=== PATIENT | male | born 1980 | race African-American/Black ===

== ENCOUNTER 2017-11-03 12:55 | Outpatient (CLI) | payer OTHER | END 2017-11-03 12:56 | disposition home or self-care (01) | LOC: DTY/OP 12:55 | PROVIDERS: ATTEND Surgery | DX: E66.01 Morbid (severe) obesity due to excess calories (principal); I10 Essential (primary) hypertension; G47.30 Sleep apnea, unspecified | CPT/HCPCS: 97802 ==

== ENCOUNTER 2018-01-29 08:33 | Outpatient (CLI) | payer BC ==
--- NOTE | 2018-01-29 13:25 | RAD ---
UPPER GI: History: Obesity. Hiatal hernia. Abdomen pain. FINDINGS: Single column contrast evaluation shows minimal sliding hiatal hernia. Small to moderate amount of ga stroesophageal reflux. Tertiary contractions of the esophagus are apparent. Stomach and duodenum are unremarkable. IMPRESSION: 1. Very small sliding hiatal hernia. 2. Gastroesophageal reflux with tertiary contractions. POS: [facility]
== END 2018-01-29 08:34 | disposition home or self-care (01) ==
LOC: RAD 08:33
PROVIDERS: ATTEND Surgery
DX: K44.9 Diaphragmatic hernia without obstruction or gangrene (principal); K21.9 Gastro-esophageal reflux disease without esophagitis
CPT/HCPCS: 74247

== ENCOUNTER 2018-02-09 10:21 | Outpatient (CLI) | payer BC ==
--- NOTE | 2018-02-09 12:20 | RAD ---
LUMBAR SPINE FOUR VIEWS: HISTORY: Back pain. TECHNIQUE: AP, lateral, and flexion/extension views of the lumbar spine obtained. FINDINGS: Four views of the lumbar spine demonstrate five [id number]-bhyclmh lumbar vertebrae. Disk space is well maintained. No evidence of fractures or bony lesions seen. No evidence of anterolisthesis or retro listhesis is seen. IMPRESSION: Normal four views lumbar spine. POS: [facility]
== END 2018-02-09 10:22 | disposition home or self-care (01) ==
LOC: SCSRAD 10:21
PROVIDERS: ATTEND Family Medicine
DX: M54.5 Low back pain (principal)
CPT/HCPCS: 36415; 72120; 80053; 80061; 82306; 84550; 85025

== ENCOUNTER 2018-03-16 09:15 | Outpatient (CLI) | payer BC ==
[2018-03-16 10:25] LABS: #Eosinphils 0.1 thou/uL (0.0-0.7); #Lymphocytes 1.8 thou/uL (1.20-3.40); #Monocytes 0.4 thou/uL (0.11-0.59); #Neutrophils 2.3 thou/uL (1.40-6.50); %Basophils 0.6 % (0.0-1.0); %Lymphocytes 38.4 % (21.0-51.0); %Monocytes 8.6 % (0.0-10.0); %Neutrophils 50.4 % (42.0-75.0); Hemoglobin 14.2 g/dL (14.0-18.0); Mean Corpuscular HGB CONC 33.5 g/dL (32.0-36.0); Mean Corpuscular Volume 86.6 fL (78.0-98.0); Mean Platelet Volume 10.6 fL (7.4-10.4); Platelet Count 179 thou/uL (130-400); RBC Distribution Width 12.8 % (11.5-14.5); Red Blood Cell (RBC) Count 4.91 mill/uL (4.70-6.10); White Blood Cell (WBC) Count 4.6 thou/uL (4.8-10.8)
[2018-03-16 10:33] LABS: Hemoglobin A1c 5.9 % (4.0-6.0)
[2018-03-16 10:51] LABS: ALT (SGPT) 128 U/L (8-55); AST (SGOT) 66 U/L (5-34); Albumin 4.9 g/dL (3.5-5.0); Alkaline Phosphatase 90 U/L (40-150); Anion Gap 17 mmol/L (10-20); BUN (Urea Nitrogen) 27 mg/dL (8.9-20.6); Bilirubin, Direct 0.3 mg/dL (0.1-0.3); Bilirubin, Total 0.7 mg/dL (0.2-1.2); Calc. Creatinine Clearance 0 mL/min (70-130); Calcium 10.4 mg/dL (7.8-10.44); Carbon Dioxide 20 mmol/L (22-29); Chloride 104 mmol/L (98-107); Estimated GFR-MDRD 82; Globulin 3.5 g/dL (2.4-3.5); Glucose 112 mg/dL (70-105); Potassium 4.6 mmol/L (3.5-5.1); Protein, Total 8.4 g/dL (6.0-8.3); Sodium 136 mmol/L (136-145)
--- NOTE | 2018-03-16 12:19 | RAD ---
TWO VIEWS CHEST: DATE: 03/16/2018. PROVIDED CLINICAL HISTORY: Preop. FINDINGS: Cardiac and mediastinal silhouette is within normal limits. Lungs appear clear. No pleural fluid or pneumothorax apparent. IMPRESSION: No evidence for an acute cardiopulmonary process. POS: [facility]
--- NOTE | 2018-03-16 12:36 | EKG ---
Test Reason : Blood Pressure : / mmHG Vent. Rate : 080 BPM Atrial Rate : 080 BPM P-R Int : 174 ms QRS Dur : 096 ms QT Int : 386 ms P-R-T Axes : 034 048 013 degrees QTc Int : 445 ms Normal sinus rhythm Cannot rule out Anterior infarct , age undetermined (Doubtful)/poor R wave progression. Abnormal ECG No previous ECGs available Confirmed by HALLIE BERGERON ([id number]) on 03/16/2018 12:35:49 PM Referred By: ANA Confirmed By:HALLIE BERGERON
== END 2018-03-16 09:16 | disposition home or self-care (01) ==
LOC: LABBT 09:15
PROVIDERS: ATTEND Surgery
DX: Z01.818 Encounter for other preprocedural examination (principal); E66.01 Morbid (severe) obesity due to excess calories
CPT/HCPCS: 71046; 80053; 80076; 83036; 85025; 93005; 93010

== ENCOUNTER 2018-03-21 09:56 | Day surgery (SDC) | payer BC ==
[2018-03-21] MEDS ORDERED: CEFAZOLIN 2 GM/50 ML BAG ONE (10:57)
[2018-03-21] MEDS ORDERED: Heparin 5,000 UNITS/ML VIAL ONE (10:57)
[2018-03-21] MEDS ORDERED: Bupivacaine 0.25% HCL 30 ML VIAL ONE (11:43)
[2018-03-21] MEDS ORDERED: Bupivacaine/Epinephrine 0.25% 30 ML VIAL ONE ×2 (11:44→11:45)
[2018-03-21] MEDS ORDERED: Fentanyl 100 MCG/2 ML VIAL ONE ×4 (12:13→15:53)
[2018-03-21] MEDS ORDERED: Midazolam HCl 2 mg/2 ml Vial ONE (12:13)
[2018-03-21] MEDS ORDERED: Promethazine HCl 25 MG/ML VIAL IM PRN ×3 (14:55→15:36)
[2018-03-21] MEDS ORDERED: Meperidine HCl/PF 25 MG/ML VIAL SLOW IVP PRN (14:55)
[2018-03-21] MEDS ORDERED: HYDROmorphone 2 MG/ML VIAL SLOW IVP PRN (14:55)
[2018-03-21] MEDS ORDERED: Promethazine HCl 25 MG/ML VIAL SLOW IVP PRN (14:55)
[2018-03-21] MEDS ORDERED: Ondansetron PF 4 MG/2 ML Vial ONE ×2 (15:11→15:18)
[2018-03-21] MEDS ORDERED: diphenhydrAMINE 50 MG/ML VIAL IVP PRN ×2 (15:16→15:36)
[2018-03-21] MEDS ORDERED: fentaNYL Citrate/PF 2,000 MCG in Sodium Chloride 0.9% 60 ML IV PRN (15:16)
[2018-03-21] MEDS ORDERED: Zolpidem Tartrate 5 MG TAB PO PRN (15:16)
[2018-03-21] MEDS ORDERED: diphenhydrAMINE 50 MG/ML VIAL IM PRN (15:16)
[2018-03-21] MEDS ORDERED: Ondansetron PF 4 MG/2 ML Vial IVP PRN ×2 (15:16→15:36)
[2018-03-21] MEDS ORDERED: diphenhydrAMINE 25 MG CAP PO PRN (15:16)
[2018-03-21] MEDS ORDERED: Naloxone HCl 0.4 mg/ml Vial IV PRN (15:16)
[2018-03-21] MEDS ORDERED: Communication Order-Pharmacy FS SCH (15:30)
[2018-03-21] MEDS ORDERED: Hydrocodone-Acetamin 15 ML UDCUP PO PRN (15:36)
[2018-03-21] MEDS ORDERED: Dextrose 50% Abboject 50 ML SYRINGE SLOW IVP PRN (15:36)
[2018-03-21] MEDS ORDERED: Dextrose 5% in Water 1,000 ML IV PRN (15:36)
[2018-03-21] MEDS ORDERED: hydrALAZINE 20 MG/ML VIAL SLOW IVP PRN (15:36)
[2018-03-21] MEDS ORDERED: HYDROmorphone 2 MG/ML VIAL ONE (16:04)
[2018-03-21] MEDS ORDERED: D5 1/2 NS w/20 mEq KCL 1,000 ML ONE (16:07)
[2018-03-21 17:34] VITALS: BMI 51.0
[2018-03-21] MEDS: D5 1/2 NS w/20 mEq KCL 1,000 ML IV SCH (17:45)
[2018-03-21] MEDS ORDERED: PROPOFOL 200 MG/20 ML VIAL ONE (18:24)
[2018-03-21] MEDS ORDERED: Glycopyrrolate 0.2 MG/ML 5 ML SYRINGE ONE (18:24)
[2018-03-21] MEDS ORDERED: Succinylcholine Chloride 20 MG/ML 10 ml SYRINGE FS ONE (18:24)
[2018-03-21] MEDS ORDERED: Lidocaine 1% PF 5 ML VIAL ONE (18:24)
[2018-03-21] MEDS ORDERED: ePHEDrine/0.9% NaCl/PF SYRINGE 50 mg/10 ml ONE (18:24)
[2018-03-21] MEDS: Enoxaparin Sodium 40 MG/0.4 ML SYRINGE SC SCH (19:48)
[2018-03-21] MEDS: Acetaminophen 1,000 MG in Premix Bag 1 BAG IVPB SCH (19:48)
[2018-03-22] MEDS: Acetaminophen 1,000 MG in Premix Bag 1 BAG IVPB SCH ×2 (02:41→08:39)
[2018-03-22] MEDS: D5 1/2 NS w/20 mEq KCL 1,000 ML IV SCH ×2 (02:42→08:38)
[2018-03-22 07:07] LABS: #Lymphocytes 1.3 thou/uL (1.20-3.40); #Monocytes 0.6 thou/uL (0.11-0.59); #Neutrophils 3.3 thou/uL (1.40-6.50); %Basophils 0.4 % (0.0-1.0); %Eosinophils 0.4 % (0.0-10.0); %Lymphocytes 25.5 % (21.0-51.0); %Monocytes 11.1 % (0.0-10.0); %Neutrophils 62.6 % (42.0-75.0); Hemoglobin 12.3 g/dL (14.0-18.0); Mean Corpuscular HGB CONC 33.3 g/dL (32.0-36.0); Mean Corpuscular Volume 87.1 fL (78.0-98.0); Mean Platelet Volume 10.3 fL (7.4-10.4); Platelet Count 184 thou/uL (130-400); RBC Distribution Width 12.6 % (11.5-14.5); Red Blood Cell (RBC) Count 4.26 mill/uL (4.70-6.10); White Blood Cell (WBC) Count 5.3 thou/uL (4.8-10.8)
[2018-03-22 07:12] LABS: Anion Gap 11 mmol/L (10-20); BUN (Urea Nitrogen) 13 mg/dL (8.9-20.6); Calc. Creatinine Clearance 258 mL/min (70-130); Calcium 8.9 mg/dL (7.8-10.44); Carbon Dioxide 25 mmol/L (22-29); Chloride 104 mmol/L (98-107); Estimated GFR-MDRD Greater than 90; Glucose 120 mg/dL (70-105); Potassium 4.1 mmol/L (3.5-5.1); Sodium 136 mmol/L (136-145)
[2018-03-22] MEDS: Pantoprazole 40 MG VIAL IVP SCH (08:39)
[2018-03-22] MEDS ORDERED: Fentanyl 100 MCG/2 ML VIAL SLOW IVP PRN (09:23)
--- NOTE | 2018-03-22 09:46 | PRG ---
DATE OF SERVICE: 03/22/2018 SUBJECTIVE: Postop day 1 gastric bypass. Mr. Wright denies nausea. He has been out of bed once just in the room, not complaining of dizziness, nausea, or vomiting. No acid reflux symptoms. He has not been able to void. He has already been in and out catheterization once. He is due to void now and has 650 mL in his bladder. OBJECTIVE: He is afebrile. Vital signs are stable. His abdomen wounds are healing well. LABORATORY DATA: White count is 5, hemoglobin 12, platelet count is 184. Creatinine is 1.07. ASSESSMENT: Postop day #1 gastric bypass. PLAN: Needs to be more active. We will get him up, see if that helps with his ability to void. Otherwise, in and out cath again. Hep-Lock IV. Discontinue COMPRESSED GAS TESTER. Home later today if able to void and tolerating liquids. Job ID: [id number]
[2018-03-22] MEDS: Hydrocodone-Acetamin 15 ML UDCUP PO PRN ×3 (11:04→19:37)
[2018-03-22] MEDS ORDERED: Acetaminophen 1,000 MG in Premix Bag 1 BAG IVPB SCH (15:00)
[2018-03-22] MEDS: Enoxaparin Sodium 40 MG/0.4 ML SYRINGE SC SCH (19:37)
[2018-03-23] MEDS: Hydrocodone-Acetamin 15 ML UDCUP PO PRN ×3 (02:00→10:46)
--- NOTE | 2018-03-23 10:17 | DIS ---
DATE OF ADMISSION: 03/21/2018 DATE OF DISCHARGE: 03/23/2018 ADMISSION DIAGNOSIS: Morbid obesity. DISCHARGE DIAGNOSIS: Morbid obesity. PROCEDURE: Laparoscopic Jem-en-Y gastric bypass by Dr. Dai without complication. CONDITION ON DISCHARGE: Improved. STAFF: Dr. Dai. HOSPITAL COURSE: On postop day 1, the patient had some pain in this left most lateral incision. He had mild nausea with the liquids. He had some urinary retention that resolved after having to have in and out catheterization one time overnight. On postop day 2, the patient is doing better with less nausea, tolerating more liquids. He is to be discharged to home. Prescriptions for Lortab, elixir, Zofran, pantoprazole were already sent to his pharmacy. He will follow up with my office in 2 weeks. Job ID: [id number]
[2018-03-23] MEDS: Pantoprazole 40 MG VIAL IVP SCH (10:47)
[2018-03-23 11:32] VITALS: BP 141/77; TEMP 98.5
--- NOTE | 2018-03-23 12:51 | OP ---
DATE OF PROCEDURE: 03/21/2018 PREOPERATIVE DIAGNOSES: 1. Super morbid obesity with a body mass index of 53. 2. Hypertension. 3. gastroesophageal reflux disease. 4. Obstructive sleep apnea. POSTOPERATIVE DIAGNOSES: 1. Super morbid obesity with a body mass index of 53. 2. Hypertension. 3. gastroesophageal reflux disease. 4. Obstructive sleep apnea. PROCEDURES: Laparoscopic Jem-en-Y gastric bypass. ANESTHESIA: General. ESTIMATED BLOOD LOSS: 50 mL. COMPLICATIONS: None. FINDINGS: Normal postoperative EGD. TECHNIQUE: The patient was taken to the operating room and laid supine on the operating room table. After general anesthetic was obtained, the arms and legs were double strapped to bariatric table. The abdomen was shaved, prepped, and draped in a sterile fashion. Left subcostal 5-mm Optiview trocar was placed in usual fashion without injury and high-flow pneumoperitoneum was obtained. Left and right abdominal 12-mm ports were placed as well as a right subcostal 12-mm port. The left subcostal port was switched out to a 12 port. The patient was placed in a reverse Trendelenburg position. A 5-mm incision made at the xiphoid and the Lory was used to raise the liver off the GE junction. The greater omentum was split to the level of the mid transverse colon. Just below this, the mesentery for the colon was lifted up, exposing the ligament of Treitz. A distance of 25 cm was marched distally and a laparoscopic stapler was fired across the small intestine. The mesentery was split slightly using a LigaSure here and then a blue limb was formed distally by using LigaSure right on the mesenteric surface of the bowel for approximately 6 cm. From this location, a distance of 130 cm was marched distally and this will be the location of the jejunojejunostomy. Enterotomy was made on the antimesenteric surface of the jejunum as well as on the antimesenteric surface of the previously stapled segment going up to the ligament of Treitz above. A lcpb-du-hhow anastomosis was performed using laparoscopic 60 stapler. The common enterotomy was closed using a transverse fire of the 60 stapler. The mesenteric defect was closed using an interrupted Vicryl suture. The blue limb, which was the Jem limb, was able to brought up through the omental split on top of the stomach under no tension. Next, the angle of His was bluntly dissected and the fundus was bluntly dissected off the left jude. A small window was made on the lesser curve of the stomach just below the GE junction into the lesser sac. At this location, a laparoscopic stapler was fired transversely across the lesser curve of the stomach. A gastrotomy was made on the distal stomach and the anvil for the 25 EEA was brought in through the left subcostal incision, it has a string tied to the sharp pin. This was passed into the gastrotomy and the sharp pin and string was brought out just above the above-mentioned staple line. This will be the location of the gastrojejunostomy. The gastrotomy was then closed using 2 fires of the laparoscopic stapling device. The stomach pouch was formed by firing above anvil angling up toward the angle of His. The stomach was confirmed to be completely at this level. The sharp pin was taken off the anvil above. The Jem limb was brought up in its proper orientation. Enterotomy was made on the end of the Ejm limb. The base for the 25 stapler was brought into left subcostal incision, passed into this intestine and its sharp pin was brought on the antimesenteric surface of the intestine slightly distal. This sharp pin was connected to the anvil from above and a gastrojejunostomy was performed by firing the stapler. The extra blue lymph and into the Jem limb was stapled off at the level of gastrojejunostomy using a reloaded laparoscopic stapler. This anastomosis was oversewn using Vicryl suture. There was no bleeding. There was no injury to any intraabdominal structures. EGD scope was passed into the esophagus, into the stomach pouch, and then into the jejunum without any difficulty. There was no air leakage or bleeding to the staple line. All port sites were infiltrated using local anesthetic. The left subcostal incision was closed using GraNee needle and 0 Vicryl tie. The Lory retractor was removed under direct visualization without bleeding. All ports were removed and pneumoperitoneum was let down. All incisions were irrigated and closed using 4-0 Monocryl and Dermabond. The patient was sent to Recovery in stable condition. All instrument counts, needle counts, and lap counts were correct. Job ID: [id number]
== END 2018-03-23 14:30 | disposition home or self-care (01) ==
LOC: SDC 09:56 → UNDOADMIN 17:35 → SURG A 17:35 → SURG B 03-22 10:44 → SURG A 03-22 10:50 → SDC 03-23 14:30
PROVIDERS: ATTEND Surgery
PROC: 0D164ZA Bypass Stomach to Jejunum, Percutaneous Endoscopic Approach (ICD-10-PCS; principal; 2018-03-21)
DX: E66.01 Morbid (severe) obesity due to excess calories (principal); Z68.43 Body mass index [BMI] 50.0-59.9, adult; K21.9 Gastro-esophageal reflux disease without esophagitis; Z79.899 Other long term (current) drug therapy
CPT/HCPCS: 36415; 80048; 85025; C9113; J0131; J0360; J1170; J1644; J1650; J2001; J2250; J2405; J2704; J3010; J7050; S0020

== ENCOUNTER 2018-03-30 04:12 | Emergency (ER) | payer BC ==
--- NOTE | 2018-03-30 07:55 | ULT ---
PRELIMINARY REPORT/[facility]/EMERGENTY AFTER-HOURS PROCEDURE US Left Duplex Lower Extremity Veins, Limited EXAM DATE/TIME: 03/30/2018 4:38 AM CLINICAL HISTORY: 37 years old, male; Pain; Leg, upper; Left; Patient HX: Lle pain in mid thigh. ; Additional info: Gas tric bypass surgery 03/21/18 TECHNIQUE: Real-time Duplex ultrasound of the Left Lower Extremity with 2-D wood scale, color Doppler flow and s pectral waveform analysis. Limited exam focused on the left lower extremity veins. COMPARISON: No relevant prior studies available. FINDINGS: Left deep veins: Unremarkable. The common femoral, femoral and popliteal veins are patent without thr ombus. Normal compressibility, augmentation response and Doppler waveforms. Left superficial veins: Unremarkable. Saphenofemoral junction is patent without thrombus. Soft tissues: Unremarkable. IMPRESSION: No acute findings. No evidence of deep vein thrombosis in the left lower extremity. Thank you for allowing us to participate in the care of your patient. Dictated and Authenticated by: Maxwell Ayala MD 03/30/2018 5:41 AM Central Time ([place] & [place]) FINAL REPORT LEFT LOWER EXTREMITY VENOUS DOPPLER: Date: 03/30/18 HISTORY: Left lower extremity edema. COMPARISON: None. TECHNIQUE: Real-time Wood scale with color Doppler and spectral analysis of the left lower extremity venous syst em was performed. The common femoral, femoral, proximal portion of greater saphenous and deep femoral veins, as well as popliteal and posterior tibial veins were interrogated. FINDINGS/IMPRESSION: Normal flow, augmentation, and compression. No deep venous thrombosis. Findings and impression are concordant with the preliminary report by [facility]. POS: [facility]
== END 2018-03-30 05:07 | disposition home or self-care (01) ==
LOC: ERS 04:12
DX: G89.18 Other acute postprocedural pain (principal); M79.652 Pain in left thigh; I10 Essential (primary) hypertension; M10.9 Gout, unspecified; F41.9 Anxiety disorder, unspecified; Z79.899 Other long term (current) drug therapy

== ENCOUNTER 2018-04-23 14:43 | Day surgery (SDC) | payer BC ==
[2018-04-23] MEDS ORDERED: Thiamine HCl 200 MG/2 ML VIAL ONE (15:21)
[2018-04-23] MEDS ORDERED: Ondansetron PF 4 MG/2 ML Vial ONE (15:21)
== END 2018-04-23 16:50 | disposition home or self-care (01) ==
LOC: SCSER/OP 14:43 → SCSER 14:43 → EDSTATUS 15:32 → SCSER/OP 16:50
PROVIDERS: ATTEND Surgery
DX: E86.0 Dehydration (principal); Z98.84 Bariatric surgery status; Z79.891 Long term (current) use of opiate analgesic; Z79.899 Other long term (current) drug therapy
CPT/HCPCS: J2405; J3411

== ENCOUNTER → 2018-04-24 | Day surgery (SDC) | payer BC ==
[~2018-04-24] MED LIST: Ondansetron PF 4 MG/2 ML Vial ONE; Pantoprazole 40 MG VIAL ONE
[2018-04-24 22:48] LABS: Hemoglobin 13.1 g/dL (14.0-18.0); Mean Corpuscular HGB CONC 32.1 g/dL (32.0-36.0); Mean Corpuscular Hemoglobin 27.5 pg (27.0-31.0); Mean Corpuscular Volume 85.5 fL (78.0-98.0); Mean Platelet Volume 10.6 fL (7.4-10.4); Platelet Count 205 thou/uL (130-400); RBC Distribution Width 13.4 % (11.5-14.5); Red Blood Cell (RBC) Count 4.77 mill/uL (4.70-6.10); White Blood Cell (WBC) Count 7.4 thou/uL (4.8-10.8)
[2018-04-24 22:50] LABS: Band 1 % (5-11); Eosinophils 2 % (0-10); Lymphocytes 32 % (21-51); Monocytes 7 % (0-10); Neutrophil 57 % (42-75)
[2018-04-24 22:52] LABS: MDiff Complete? YES
[2018-04-24 23:00] LABS: ALT (SGPT) 88 U/L (8-55); AST (SGOT) 73 U/L (5-34); Albumin 4.2 g/dL (3.5-5.0); Alkaline Phosphatase 103 U/L (40-150); Anion Gap 17 mmol/L (10-20); BUN (Urea Nitrogen) 8 mg/dL (8.9-20.6); Bilirubin, Total 0.7 mg/dL (0.2-1.2); Calc. Creatinine Clearance 0 mL/min (70-130); Calcium 9.4 mg/dL (7.8-10.44); Carbon Dioxide 21 mmol/L (22-29); Chloride 107 mmol/L (98-107); Estimated GFR-MDRD Greater than 90; Globulin 3.9 g/dL (2.4-3.5); Glucose 82 mg/dL (70-105); Potassium 5.1 mmol/L (3.5-5.1); Protein, Total 8.1 g/dL (6.0-8.3); Sodium 140 mmol/L (136-145)
[2018-04-25 01:09] LABS: Bilirubin Negative (Negative); Blood, Urine Negative (Negative); Clarity Clear (Clear); Glucose, Urine (Dipstick) Negative (Negative); Leukocyte Negative (Negative); Nitrite Negative (Negative); Protein, Urine (Dipstick) Negative (Neg-Trace); Urobilinogen 0.2 mg/dL (0.2-1.0)
== END ==
LOC: SCSER/OP 17:46
PROVIDERS: ATTEND Family Medicine
DX: Z29.8 Encounter for other specified prophylactic measures (principal)
CPT/HCPCS: 80053; 81003; 85025; 87086; C9113; J2405

== ENCOUNTER 2018-04-25 14:22 | Observation (INO) | payer BC ==
[~2018-04-25 14:22] MED LIST changes: +ISOVUE-370 76%-LOCM 1 ML ONE; +Iopamidol 370 76% 50 ML VIAL FS ONE; -Ondansetron PF 4 MG/2 ML Vial ONE; -Pantoprazole 40 MG VIAL ONE
[2018-04-25] MEDS ORDERED: Ondansetron ODT 8 MG TAB ONE (15:30)
[2018-04-25 16:20] LABS: #Basophils 0.1 thou/uL (0.0-0.2); #Eosinphils 0.1 thou/uL (0.0-0.7); #Lymphocytes 1.6 thou/uL (1.20-3.40); #Monocytes 0.3 thou/uL (0.11-0.59); #Neutrophils 3.1 thou/uL (1.40-6.50); %Basophils 1.8 % (0.0-1.0); %Eosinophils 1.6 % (0.0-10.0); %Lymphocytes 30.6 % (21.0-51.0); %Monocytes 6.2 % (0.0-10.0); %Neutrophils 59.8 % (42.0-75.0); Hemoglobin 14.7 g/dL (14.0-18.0); Mean Corpuscular HGB CONC 32.5 g/dL (32.0-36.0); Mean Corpuscular Hemoglobin 29.3 pg (27.0-31.0); Mean Corpuscular Volume 90.2 fL (78.0-98.0); Mean Platelet Volume 11.9 fL (7.4-10.4); Platelet Count 150 thou/uL (130-400); RBC Distribution Width 13.3 % (11.5-14.5); Red Blood Cell (RBC) Count 5.02 mill/uL (4.70-6.10); White Blood Cell (WBC) Count 5.1 thou/uL (4.8-10.8)
[2018-04-25 16:39] LABS: Bilirubin Negative (Negative); Blood, Urine Negative (Negative); Clarity CLEAR (Clear); Glucose, Urine (Dipstick) Negative (Negative); Leukocyte Negative (Negative); Nitrite Negative (Negative); Protein, Urine (Dipstick) Negative (Neg-Trace); Specific Gravity, Urine 1.015 (1.002-1.036)
[2018-04-25 16:45] LABS: ALT (SGPT) 86 U/L (8-55); AST (SGOT) 50 U/L (5-34); Albumin 4.5 g/dL (3.5-5.0); Alkaline Phosphatase 118 U/L (40-150); Anion Gap 18 mmol/L (10-20); BUN (Urea Nitrogen) 6 mg/dL (8.9-20.6); Bilirubin, Total 0.8 mg/dL (0.2-1.2); Calc. Creatinine Clearance 0 mL/min (70-130); Calcium 9.5 mg/dL (7.8-10.44); Carbon Dioxide 23 mmol/L (22-29); Chloride 104 mmol/L (98-107); Estimated GFR-MDRD Greater than 90; Globulin 3.5 g/dL (2.4-3.5); Glucose 81 mg/dL (70-105); Lipase 11 U/L (8-78); Potassium 3.6 mmol/L (3.5-5.1); Sodium 141 mmol/L (136-145)
[2018-04-25] MEDS ORDERED: Morphine 4 MG/ML VIAL ONE ×2 (16:45→19:03)
[2018-04-25] MEDS ORDERED: hydrALAZINE 20 MG/ML VIAL SLOW IVP PRN (18:52)
[2018-04-25] MEDS ORDERED: Promethazine HCl 25 MG/ML VIAL IM PRN (18:52)
[2018-04-25] MEDS ORDERED: Dextrose 5% in Water 1,000 ML IV PRN (18:52)
[2018-04-25] MEDS ORDERED: Dextrose 50% Abboject 50 ML SYRINGE SLOW IVP PRN (18:52)
[2018-04-25] MEDS ORDERED: Morphine 2 MG/ML SYRINGE SLOW IVP PRN (18:52)
--- NOTE | 2018-04-25 20:45 | CT ---
ABDOMEN CT WITH CONTRAST PELVIC CT WITH CONTRAST 04/25/18 HISTORY: Abdominal pain. Previous gastric bypass. Intermittent vomiting and diarrhea since Monday. COMPARISON: None. FINDINGS: ABDOMEN CT: Linear opacities in the lung bases likely represent areas of scar and atelectasis. No pericardial eff usion. The descending thoracic aorta and abdominal aorta have normal caliber. No periaortic fat stran ding. No gastrohepatic, retrocrural or periportal lymph adenopathy. Portal vein is patent. Unremarkable gallbladder. Liver, pancreas, and the adrenal glands have appropriate attenuation and enhancement. There is no me senteric mass lymphadenopathy, free air or free fluid. There are surgical changes compatible with bar iatric surgery. Small bowel loops are neither distended or nor dilated. Ileocecal junction is normal. Normal caliber appendix. Colon is decompressed. Occasional diverticulum. No definite diverticulitis. Symmetric enhancement of the kidneys. Bilaterally, no obstructive uropathy. There is a nonobstructing 1 to 2 mm calculus in the left upper pole intrarenal collecting system. There is mixed attenuation l esion in the upper pole of the right kidney, incompletely evaluated. This lesion has an attenuation c oefficient of 15 Hounsfield units and measures 2.1 cm. The possibility of a complex cyst is raised. N onemergent abdomen MRI or ultrasound can be performed for better interrogation. CT PELVIS; Unremarkable urinary bladder. No mass, lymphadenopathy, free air or free fluid. No lytic or blastic l esions in the osseous structures. IMPRESSION: 1. Findings compatible with previous bariatric surgery. 2. No evidence of bowel obstruction. Normal caliber appendix. 3. Indeterminate lesion in the upper pole of the right kidney which may represent a complex cyst . Confirmation with nonemergent abdomen MRI or ultrasound. POS: [facility]
[2018-04-25] MEDS: Enoxaparin Sodium 40 MG/0.4 ML SYRINGE SC SCH (22:03)
[2018-04-25] MEDS: D5 1/2 NS w/20 mEq KCL 1,000 ML IV SCH (22:03)
[2018-04-25] MEDS: HYDROcodone/Acetaminophen 10/325 mg Tablet PO PRN (22:16)
[2018-04-25 23:09] VITALS: BMI 47.2
[2018-04-26] MEDS: HYDROcodone/Acetaminophen 10/325 mg Tablet PO PRN ×3 (03:31→16:44)
[2018-04-26] MEDS: D5 1/2 NS w/20 mEq KCL 1,000 ML IV SCH ×3 (05:27→18:37)
[2018-04-26] MEDS: Morphine 4 MG/ML VIAL SLOW IVP PRN ×3 (06:06→18:35)
[2018-04-26] MEDS: Pantoprazole 40 MG VIAL IVP SCH (09:25)
--- NOTE | 2018-04-26 12:53 | HP ---
HISTORY OF PRESENT ILLNESS: Mr. Wright returned to the emergency room again with nausea, vomiting, and some diarrhea. This all started on Monday when he presented with nausea, vomited a few times, associated with diarrhea, has not really been able to keep much down since he has been to the emergency room few times by my instruction for IV fluids, just not better. He feels much better after being here overnight. He has been able to sip on some liquids this morning. PAST MEDICAL HISTORY: Includes gout, GERD, morbid obesity, and hypertension. PAST SURGICAL HISTORY: Jem-en-Y gastric bypass on 03/21/2018. MEDICATIONS: Taken at home; Protonix, multivitamin, metoprolol, Celexa, lisinopril, and allopurinol. ALLERGIES: NO KNOWN DRUG ALLERGIES. SOCIAL HISTORY: No smoking, alcohol, or other drugs. REVIEW OF SYSTEMS: Otherwise negative unless described above. PHYSICAL EXAMINATION: VITAL SIGNS: His blood pressure is 120/75, pulse 80, respirations 16, and he is afebrile. HEENT: Sclerae anicteric. Oropharynx is clear. NECK: No lymphadenopathy. CHEST: Clear. HEART: Regular rate and rhythm. ABDOMEN: Soft and nontender. Wound is healing well. LABORATORY DATA: White count is 5, hemoglobin 14, and platelet count is 150. Sodium 141, potassium 3.6, and creatinine 0.93. UA negative. CT scan negative. ASSESSMENT: Nausea, vomiting, and dehydration within the first month of gastric bypass. PLAN: Continue IV fluids today. Advance to full liquids. Home tomorrow, if doing well. If not, we will get Gastroenterology to see for EGD. Job ID: [id number]
[2018-04-26] MEDS: Ondansetron PF 4 MG/2 ML Vial IVP PRN (19:18)
[2018-04-26] MEDS: Enoxaparin Sodium 40 MG/0.4 ML SYRINGE SC SCH (21:05)
[2018-04-27] MEDS: D5 1/2 NS w/20 mEq KCL 1,000 ML IV SCH ×3 (03:28→18:23)
[2018-04-27] MEDS: Pantoprazole 40 MG VIAL IVP SCH (08:19)
[2018-04-27] MEDS: HYDROcodone/Acetaminophen 10/325 mg Tablet PO PRN ×3 (08:22→22:43)
--- NOTE | 2018-04-27 09:46 | PRG ---
DATE OF SERVICE: 04/27/2018 SUBJECTIVE: Mr. Wright states that he still cannot drink much liquids. He tried some pudding yesterday and it came right back up. He does overall feel better after an admission for rehydration. He is urinating regularly now. He did have a small bowel movement and has been passing some gas. OBJECTIVE: VITAL SIGNS: Blood pressure is 125/80 and pulse 66. He is afebrile. Urine output 850 for the shift. CHEST: Clear. HEART: Regular rate and rhythm. ABDOMEN: Soft, nontender, nondistended. His incisions are well healed. ASSESSMENT: 4 weeks status post gastric bypass, who is initially doing well, now having nausea and vomiting, inability to tolerate more than clear liquids. His CT scan on admission was normal. His labs were all normal except for minimal elevation of his liver tests, which was present before surgery. PLAN: We will ask Dr. Carmona to see, maybe needs an EGD to rule out an acute gastrojejunal stenosis. Job ID: [id number]
[2018-04-27] MEDS ORDERED: Promethazine HCl 25 MG/ML VIAL IM PRN (13:15)
[2018-04-27] MEDS ORDERED: Promethazine HCl 25 MG/ML VIAL SLOW IVP PRN (13:15)
[2018-04-27] MEDS ORDERED: HYDROmorphone 2 MG/ML VIAL SLOW IVP PRN (13:15)
[2018-04-27] MEDS ORDERED: Ondansetron HCl/PF 4 MG/2 ML Vial IVP PRN (13:15)
[2018-04-27] MEDS ORDERED: Meperidine HCl/PF 25 MG/ML VIAL SLOW IVP PRN (13:15)
[2018-04-27] MEDS ORDERED: Lidocaine 1% PF 5 ML VIAL ONE (13:49)
[2018-04-27] MEDS ORDERED: PROPOFOL 200 MG/20 ML VIAL ONE (13:49)
--- NOTE | 2018-04-27 15:32 | CON ---
DATE OF CONSULTATION: REASON FOR CONSULTATION: Nausea and vomiting, status post bariatric surgery. HISTORY OF PRESENT ILLNESS: Mr. Wright is a pleasant 37-year-old, who underwent a bariatric surgery on 03/21. He had a Jem-en-Y gastric bypass and repair of a hiatal hernia. He did well with clear liquids and advanced to full liquids, and then the puree foods up until about 2 weeks ago. At that time, on Monday, he developed acute nausea and vomiting, really has not able to hold anything down. Dr. Dai had him in the ER couple of times and then in Infusion Unit just for IV fluids as he thought maybe he had something viral. He denies drinking alcohol. He denies taking any NSAIDs. Denies smoking. He ultimately was admitted. He had a CAT scan of the abdomen and pelvis yesterday that showed no identifiable causes of the symptoms. No adenopathy. No free fluid. Normal small bowel. Colon was decompressed. Dr. Dai placed him on some IV fluids and asked me to see for possible endoscopy. PAST MEDICAL HISTORY: Reflux, gout, morbid obesity, and hypertension. PAST SURGICAL HISTORY: On 03/21/2018, Jem-en-Y gastric bypass, which he has done well with up until two weeks ago. MEDICATIONS: At home; 1. Protonix. 2. Multivitamin. 3. Metoprolol. 4. Celexa. 5. Lisinopril. 6. Allopurinol. PRESENT MEDICATIONS: 1. DuoNeb. 2. Dextrose 50 p.r.n. 3. Lovenox 40 subcu daily. 4. Fentanyl p.r.n. 5. Hydralazine p.r.n. 6. Hydrocodone p.r.n. 7. Demerol p.r.n. 8. Zofran p.r.n. 9. Protonix 40 mg IV daily maintenance infusion. ALLERGIES: NONE. SOCIAL HISTORY: He does not smoke, drink, or use drugs. REVIEW OF SYSTEMS: Negative for dysphagia or odynophagia. Negative for fever or chills. Negative for melena, hematochezia, or hematemesis. PHYSICAL EXAMINATION: GENERAL: The patient is resting comfortably in bed, not in distress. He is overweight still. HEENT: Oropharynx slightly dry. LUNGS: Clear. HEART: Regular rate and rhythm without rubs or murmurs. ABDOMEN: Soft and nontender. Incisions are well healed without any evidence of drainage or abnormalities. LABORATORY DATA: Labs yesterday notable for a white count of 5.1, hemoglobin 14.7, and platelet count of 150. Sodium 141, potassium 3.6, BUN and creatinine of 6 and 0.93. AST and ALT of 15 and 86. Lipase 11. Albumin and protein normal. ASSESSMENT: Nausea and vomiting for 2 weeks, history of bariatric surgery about a month ago. Differential diagnosis includes gastroparesis, post gastroenteritis, anastomotic stricture or ulcer could be a possibility as well. He does have a history of hiatal hernia repair, some type of stricture related to his previous reflux could be a concern. PLAN: Agree with IV fluids and admission. We will plan for EGD today. I have discussed the case with the patient and with Dr. Dai. Job ID: [id number]
[2018-04-27] MEDS: Morphine 4 MG/ML VIAL SLOW IVP PRN (15:33)
[2018-04-27] MEDS: Sucralfate 1 GM/10 ML UDCUP PO SCH (17:36)
--- NOTE | 2018-04-27 17:43 | OP ---
DATE OF PROCEDURE: 04/27/2018 PROCEDURE PERFORMED: Esophagogastroduodenoscopy with dilatation of gastrojejunal anastomosis. HISTORY OF PRESENT ILLNESS: 1. Nausea and vomiting for 2 weeks. 2. Bariatric surgery, Jem-en-Y gastric bypass and hernia repair four weeks ago. POSTPROCEDURE DIAGNOSES: 1. Slight erosions at the gastrojejunal anastomosis. 2. 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 3. Otherwise, normal Jem-en-Y gastric bypass appearance except for the presence of about a 4 cm hiatal hernia. RECOMMENDATIONS: 1. IV Protonix. 2. Carafate, clear liquids, antiemetics. PROCEDURE IN DETAIL: The patient was informed of the risks, benefits, and possible complications of endoscopy including perforation, reaction to medication, and aspiration, and informed consent obtained. The patient was brought to the endoscopy suite, where he was sedated in gradual fashion. Once he was comfortable, a bite block was placed into his oropharynx. The esophagus appeared normal. There was no evidence of stricture. At the lower esophagus, there was a hiatal hernia with height at about 45 cm and the proximal gastric folds at about 40 cm. There is no evidence of erosions or Douglas ulcers. Entering the stomach, retroflexed views revealed normal appearing pouch. The scope could not be advanced through the gastrojejunal anastomosis however, due to tightness, this area was dilated with a 12 mm balloon and then with a 15 mm balloon. Second-look showed good effect. There was no evidence of perforation in the course of the anastomosis over some erosions and ulceration. There was no evidence of overt surgical clips or sutures visible, and there are no signs of perforation. The scope was advanced through the jejunal limb down as far as we could. The anastomosis of Jem limb was not identified. This area appeared normal. The scope was removed. The patient tolerated the procedure well. There were no complications. These findings were discussed the patient and Dr. Dai. Job ID: [id number]
[2018-04-27] MEDS: Ondansetron PF 4 MG/2 ML Vial IVP PRN (19:52)
[2018-04-27] MEDS: Enoxaparin Sodium 40 MG/0.4 ML SYRINGE SC SCH (20:34)
[2018-04-28] MEDS: Sucralfate 1 GM/10 ML UDCUP PO SCH ×4 (00:15→17:47)
[2018-04-28] MEDS: HYDROcodone/Acetaminophen 10/325 mg Tablet PO PRN ×4 (04:59→21:16)
[2018-04-28] MEDS: D5 1/2 NS w/20 mEq KCL 1,000 ML IV SCH ×4 (05:01→21:15)
[2018-04-28 07:39] LABS: Anion Gap 10 mmol/L (10-20); BUN (Urea Nitrogen) Less than 4 mg/dL (8.9-20.6); Calc. Creatinine Clearance 302 mL/min (70-130); Carbon Dioxide 27 mmol/L (22-29); Chloride 104 mmol/L (98-107); Estimated GFR-MDRD Greater than 90; Glucose 105 mg/dL (70-105); Magnesium 1.7 mg/dL (1.6-2.6); Phosphorus 3.2 mg/dL (2.3-4.7); Potassium 3.6 mmol/L (3.5-5.1); Sodium 137 mmol/L (136-145)
[2018-04-28] MEDS: Pantoprazole 40 MG VIAL IVP SCH (09:04)
[2018-04-28] MEDS: Ondansetron PF 4 MG/2 ML Vial IVP PRN (12:38)
[2018-04-28] MEDS: Enoxaparin Sodium 40 MG/0.4 ML SYRINGE SC SCH (21:12)
[2018-04-29] MEDS: Sucralfate 1 GM/10 ML UDCUP PO SCH ×2 (04:38→05:39)
[2018-04-29] MEDS: HYDROcodone/Acetaminophen 10/325 mg Tablet PO PRN ×2 (04:39→11:10)
[2018-04-29] MEDS: Pantoprazole 40 MG VIAL IVP SCH (10:14)
[2018-04-29 11:52] VITALS: BP 125/84; TEMP 98
--- NOTE | 2018-04-29 18:04 | PRG ---
DATE OF SERVICE: 04/29/2018 SUBJECTIVE: Mr. Wright states he ate better. Yesterday, he was able to hold on liquids. He is looking forward to going home today. OBJECTIVE: VITAL SIGNS: Temperature is 98, pulse 50 to 47, and blood pressure is 125/84. GENERAL: The patient is resting, sleeping in bed. ABDOMEN: Nontender when we rolled him over. LABORATORY DATA: None today. ASSESSMENT: Anastomotic stricture, gastrojejunal area, not able to pass the scope. This was dilated to 15 mm. Small ulcerations noted in this area. The distal anastomosis appeared normal. PLAN: He is to be going home today. I have recommend he continue his multivitamins. We will also place him on Carafate to take for the couple of weeks and a PPI. He has been instructed to drink fluids slowly. He is down to full liquid diet with his vitamins. He is to follow up with Dr. Dai in the office in a week or so. He may need to be re-dilated in the future. Reminded him not to use NSAIDs, drink alcohol, or smoke. He says he does not do any of these. Job ID: [id number]
--- NOTE | 2018-04-30 10:02 | PRG ---
DATE OF SERVICE: 04/28/2018 SUBJECTIVE: Nurse reports he is not taking in much by mouth. He had EGD and dilatation yesterday. He says that he is drinking about 2 ounces every 6 hours. OBJECTIVE: VITAL SIGNS: On examination, his temperature is 98, pulse 50, blood pressure 150/92. GENERAL: He is awake, alert, in no distress. ABDOMEN: Obese, soft, nontender. Incisions healing well. ASSESSMENT: Anastomotic stricture status post dilatation, dehydration. PLAN: Encourage more p.o. intake, ambulation, will need to stay until he is able to tolerate at least 8 ounces of fluid every 2 hours. Job ID: [id number]
--- NOTE | 2018-04-30 13:49 | DIS ---
DATE OF ADMISSION: 04/25/2018 DATE OF DISCHARGE: 04/29/2018 DISCHARGE DIAGNOSES: Anastomotic stricture and dehydration. PROCEDURES DURING ADMISSION: IV hydration and EGD with dilatation. HOSPITAL COURSE: The patient was admitted, given IV fluids. GI was consulted. He underwent EGD with dilatation. Post procedure, he is doing much better. He is tolerating liquids better. He is staying hydrated. He is discharged home on Zofran and hydrocodone. He will follow up with Dr. Dai on the 02 of May. Job ID: [id number]
== END 2018-04-29 13:05 | disposition home or self-care (01) ==
LOC: ERS 14:22 → SURG A 18:57
PROVIDERS: ADMIT Surgery; ATTEND Internal Medicine Gastroenterology
PROC: 0D758ZZ Dilation of Esophagus, Via Natural or Artificial Opening Endoscopic (ICD-10-PCS; principal; 2018-04-27)
DX: K95.89 Other complications of other bariatric procedure (principal); K44.9 Diaphragmatic hernia without obstruction or gangrene; E86.0 Dehydration; I10 Essential (primary) hypertension; M10.9 Gout, unspecified; K21.9 Gastro-esophageal reflux disease without esophagitis; E66.01 Morbid (severe) obesity due to excess calories; Z68.42 Body mass index [BMI] 45.0-49.9, adult; Z98.84 Bariatric surgery status; Z79.899 Other long term (current) drug therapy
CPT/HCPCS: 36415; 74177; 80048; 80053; 83690; 83735; 84100; 85025; 96361; 96372; 96374; 96375; 96376; C1726; C9113; G0378; J0360; J1650; J2270; J2405; Q9966; Q9967

== ENCOUNTER 2018-05-17 01:43 | Emergency (ER) | payer BC ==
[2018-05-17] MEDS ORDERED: Pantoprazole 40 MG VIAL ONE (02:30)
[2018-05-17] MEDS ORDERED: Ondansetron PF 4 MG/2 ML Vial ONE (02:30)
[2018-05-17] MEDS ORDERED: Morphine 4 MG/ML VIAL ONE (02:30)
[2018-05-17 02:55] LABS: #Basophils 0.1 thou/uL (0.0-0.2); #Eosinphils 0.1 thou/uL (0.0-0.7); #Lymphocytes 2.1 thou/uL (1.20-3.40); #Monocytes 0.6 thou/uL (0.11-0.59); #Neutrophils 4.4 thou/uL (1.40-6.50); %Basophils 1.5 % (0.0-1.0); %Lymphocytes 29.1 % (21.0-51.0); %Monocytes 7.7 % (0.0-10.0); %Neutrophils 60.6 % (42.0-75.0); Hemoglobin 13.9 g/dL (14.0-18.0); Mean Corpuscular HGB CONC 31.7 g/dL (32.0-36.0); Mean Corpuscular Hemoglobin 28.9 pg (27.0-31.0); Mean Corpuscular Volume 91.1 fL (78.0-98.0); Mean Platelet Volume 11.7 fL (7.4-10.4); Platelet Count 189 thou/uL (130-400); RBC Distribution Width 13.2 % (11.5-14.5); Red Blood Cell (RBC) Count 4.81 mill/uL (4.70-6.10); White Blood Cell (WBC) Count 7.3 thou/uL (4.8-10.8)
[2018-05-17 03:19] LABS: ALT (SGPT) 71 U/L (8-55); AST (SGOT) 41 U/L (5-34); Albumin 3.9 g/dL (3.5-5.0); Alkaline Phosphatase 98 U/L (40-150); Anion Gap 15 mmol/L (10-20); BUN (Urea Nitrogen) 11 mg/dL (8.9-20.6); Bilirubin, Total 0.7 mg/dL (0.2-1.2); Calc. Creatinine Clearance 0 mL/min (70-130); Calcium 9.5 mg/dL (7.8-10.44); Carbon Dioxide 23 mmol/L (22-29); Chloride 106 mmol/L (98-107); Estimated GFR-MDRD Greater than 90; Globulin 3.7 g/dL (2.4-3.5); Glucose 101 mg/dL (70-105); Lipase 18 U/L (8-78); Potassium 3.5 mmol/L (3.5-5.1); Protein, Total 7.6 g/dL (6.0-8.3); Sodium 140 mmol/L (136-145)
[2018-05-17] MEDS ORDERED: Thiamine HCl 200 MG/2 ML VIAL SLOW IVP SCH (04:30)
[2018-05-17] MEDS ORDERED: Morphine 2 MG/ML SYRINGE ONE (05:05)
--- NOTE | 2018-05-17 08:27 | ULT ---
PRELIMINARY REPORT/[facility] AFTER-HOURS PROCEDURE US Abdomen Limited, Right Upper Quadrant EXAM DATE/TIME: 05/17/2018 2:52 AM CLINICAL HISTORY: 37 years old, male; Pain and signs and symptoms; Nausea and vomiting and other: Diarrhea; Abdominal p ain; Generalized; Prior surgery; Surgery date: 1-6 months; Surgery type: Gastric bypass TECHNIQUE: Real-time ultrasound of the abdomen with image documentation. Examination was focused on the right up per quadrant. COMPARISON: No relevant prior studies available. FINDINGS: Limitations: Limited study due to bowel gas. Liver: Echogenic/fatty liver. No mass. Gallbladder: No acute findings. No gallstones. Common bile duct: Obscured by bowel gas. Pancreas: Obscured by bowel gas. Right kidney: Right renal 3.4cm cyst. No acute findings. No hydronephrosis. IMPRESSION: Limited study. No definite acute findings. Thank you for allowing us to participate in the care of your patient. Dictated and Authenticated by: Denzel Vieira MD 05/17/2018 3:24 AM Central Time ([place] & [place]) FINAL REPORT SONOGRAM RIGHT UPPER QUADRANT: Date: 05-17-18 Performed on emergency basis at 0254 hours. History: Right upper quadrant pain, nausea, vomiting, diarrhea. FINDINGS: I agree with the preliminary report by Dr. Vieira from [facility]. No gallstones or acute bilia ry obstruction are apparent. Cysts arise from the cortex of the right kidney, measuring up to 3.4 cm at the superior pole. No hydronephrosis. Code QA POS: [facility]
== END 2018-05-17 06:10 | disposition home or self-care (01) ==
LOC: ERS 01:43
DX: R10.13 Epigastric pain (principal); R10.11 Right upper quadrant pain; Z98.84 Bariatric surgery status; F41.9 Anxiety disorder, unspecified; M10.9 Gout, unspecified; I10 Essential (primary) hypertension; Z79.899 Other long term (current) drug therapy
CPT/HCPCS: 76705; 80053; 83690; 85025; 96361; 96374; 96375; 96376; C9113; J2270; J2405; J3411

== ENCOUNTER 2018-05-21 08:12 | Day surgery (SDC) | payer BC ==
[2018-05-18 14:13] VITALS: BMI 44.2
[2018-05-21] MEDS ORDERED: Morphine 2 MG/ML SYRINGE ONE ×2 (10:36→11:08)
[2018-05-21] MEDS ORDERED: ISOVUE-370 76%-LOCM 1 ML ONE (10:44)
--- NOTE | 2018-05-21 11:39 | OP ---
DATE OF PROCEDURE: 05/21/2018 PREOPERATIVE DIAGNOSES: 1. 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 2. Swallowing improves since previous procedure. 3. Upper abdominal pain with all p.o. intake. POSTOPERATIVE DIAGNOSES: 1. Esophagus appeared normal. There is a hiatal hernia. 2. Gastric pouch appears normal. 3. There is a stricture at the anastomosis from the gastric pouch in the jejunum. This was unable to be passed by the scope, it was dilated to 18 mm and then passed. 4. The remainder of the jejunal limb leaving the stomach appeared normal. The anastomosis of the Jem limb was not visible. ANESTHESIA: TIVA. RECOMMENDATIONS: 1. Carafate 4 times a day, he has only been taking this once or twice. 2. Avoid NSAIDs. Avoid smoking. 3. If he continues to get recurrent strictures and this area is likely ischemic, may be reasonable to consider referral to advanced therapeutic endoscopy for stent placement. PROCEDURE IN DETAIL: The patient was informed of the risks, benefits, and possible complications of endoscopy including perforation, reaction to medication, and aspiration, informed consent was obtained. The patient was brought to the endoscopy suite, where he was sedated in gradual fashion. Once he was comfortable, a bite block was placed inside his orifices. The endoscope was advanced to the esophagus and into the stomach. The esophagus was normal as well as 3 to 4 cm hiatal hernia. There was a nice gastric pouch, which appeared normal. The anastomosis between the stomach and jejunum was notably narrowed. The scope could not be passed beyond this area. We were able to safely pass it through the scope balloon, 15 mm in size. This area was dilated and held for 20 seconds. The scope was then able to easily pass beyond this area. There were no signs of perforation. Staple lines were seen. No discrete ulcers were seen, but the tissues were very inflamed. The jejunal limb otherwise appeared normal. The distal anastomosis was not seen. The scope was removed. The patient tolerated the procedure well and was brought to recovery room in stable condition. Job ID: [id number]
--- NOTE | 2018-05-21 13:10 | CT ---
CT OF THE ABDOMEN AND PELVIS WITH IV CONTRAST: INDICATION: History of EGD and dilatation today, concern for possible perforation. COMPARISON: Prior exam dated 04/25/2018. FINDINGS: No definite free air or free fluid is seen within the abdominal cavity. Lung bases are clear. The liver, pancreas, adrenal glands, and spleen appear within normal limits. There is a stable 3 cm cyst involving the superior pole of the right kidney. No enlarged lymph nodes are evident. There is a mild amount of retained stool within the colon. There is a normal retrocecal appendix. S mall bowel has a normal caliber. No free fluid is evident within the pelvis. There are bilateral fat-containing inguinal hernias. No definite acute osseous abnormality is evident. IMPRESSION: 1. No definite evidence of free fluid or free air to suggest the presence of perforation. 2. Stable postsurgical changes of a prior gastric bypass. 3. Right renal cyst. 4. Mild amount of retained stool within the colon. POS: [facility]
[2018-05-21] MEDS ORDERED: HYDROcodone/Acetaminophen 5/325 mg Tablet ONE ×2 (13:21→13:22)
== END 2018-05-21 13:35 | disposition home or self-care (01) ==
LOC: SDC 08:12
PROVIDERS: ATTEND Internal Medicine Gastroenterology
PROC: 0D768ZZ Dilation of Stomach, Via Natural or Artificial Opening Endoscopic (ICD-10-PCS; principal; 2018-05-21)
DX: K95.89 Other complications of other bariatric procedure (principal); K44.9 Diaphragmatic hernia without obstruction or gangrene; Z79.891 Long term (current) use of opiate analgesic; Z79.899 Other long term (current) drug therapy
CPT/HCPCS: 74177; J2270

== ENCOUNTER 2018-06-30 22:06 | Emergency (ER) | payer BC ==
[2018-06-30] MEDS ORDERED: Morphine 4 MG/ML VIAL ONE (22:42)
[2018-06-30] MEDS ORDERED: Ondansetron PF 4 MG/2 ML Vial ONE ×2 (22:42→23:59)
[2018-06-30 23:11] LABS: ALT (SGPT) 47 U/L (8-55); AST (SGOT) 37 U/L (5-34); Albumin 4.1 g/dL (3.5-5.0); Alkaline Phosphatase 102 U/L (40-150); Anion Gap 15 mmol/L (10-20); BUN (Urea Nitrogen) 13 mg/dL (8.9-20.6); Bilirubin, Total 0.7 mg/dL (0.2-1.2); Calc. Creatinine Clearance 0 mL/min (70-130); Calcium 9.5 mg/dL (7.8-10.44); Carbon Dioxide 26 mmol/L (22-29); Chloride 105 mmol/L (98-107); Estimated GFR-MDRD Greater than 90; Globulin 3.5 g/dL (2.4-3.5); Glucose 89 mg/dL (70-105); Lipase 10 U/L (8-78); Potassium 3.9 mmol/L (3.5-5.1); Protein, Total 7.6 g/dL (6.0-8.3); Sodium 142 mmol/L (136-145)
[2018-06-30 23:20] LABS: Hemoglobin 12.6 g/dL (14.0-18.0); Mean Corpuscular Hemoglobin 28.2 pg (27.0-31.0); Mean Corpuscular Volume 88.3 fL (78.0-98.0); Mean Platelet Volume 14.4 fL (7.4-10.4); Platelet Count 169 thou/uL (130-400); RBC Distribution Width 14.5 % (11.5-14.5); Red Blood Cell (RBC) Count 4.45 mill/uL (4.70-6.10); White Blood Cell (WBC) Count 7.4 thou/uL (4.8-10.8)
[2018-06-30 23:28] LABS: Lymphocytes 31 % (21-51); MDiff Complete? YES; Monocytes 6 % (0-10); Neutrophil 63 % (42-75)
[2018-06-30] MEDS ORDERED: Ketorolac Tromethamine 30 MG/ML VIAL ONE (23:59)
[2018-07-01 00:49] LABS: Bilirubin Negative (Negative); Blood, Urine Negative (Negative); Clarity Clear (Clear); Glucose, Urine (Dipstick) Negative (Negative); Leukocyte Negative (Negative); Nitrite Negative (Negative); Protein, Urine (Dipstick) Negative (Neg-Trace); Specific Gravity, Urine 1.015 (1.005-1.030); Urobilinogen 0.2 mg/dL (0.2-1.0)
--- NOTE | 2018-07-01 07:36 | CT ---
ABDOMEN AND PELVIS CT WITH CONTRAST: COMPARISON: 05/21/2018. CLINICAL HISTORY: Abdominal pain. FINDINGS: No significant, acute abnormalities of the visualized lung bases. There is postsurgical change of th e stomach. Stable centrally located round hypodensity of the right kidney is present. There is punc palencia nonobstructing left nephrolithiasis. Contrast-opacified small bowel is normal in caliber. Ther e is colonic diverticulosis. A normal-caliber appendix which is partially air-filled is present with in the right lower quadrant. No abdominal aortic aneurysm or retroperitoneal hematoma. Unopacified urinary bladder is grossly unremarkable. The liver, spleen, pancreas, and adrenal glands are unremar kable. There is no acute osseous pathology. IMPRESSION: 1. No acute process. 2. Additional findings are detailed above. POS: [facility]
== END 2018-07-01 00:50 | disposition home or self-care (01) ==
LOC: SCSER 22:06
DX: R11.2 Nausea with vomiting, unspecified (principal); R19.7 Diarrhea, unspecified; M10.9 Gout, unspecified; I10 Essential (primary) hypertension; F41.9 Anxiety disorder, unspecified
CPT/HCPCS: 74177; 80053; 81003; 83690; 84484; 85025; 93005; 96361; 96374; 96375; 96376; J1885; J2270; J2405

== ENCOUNTER 2018-07-18 11:14 | Emergency (ER) | payer BC ==
[2018-07-18 12:21] LABS: #Basophils 0.1 thou/uL (0.0-0.2); #Eosinphils 0.1 thou/uL (0.0-0.7); #Lymphocytes 1.4 thou/uL (1.20-3.40); #Monocytes 0.3 thou/uL (0.11-0.59); #Neutrophils 2.5 thou/uL (1.40-6.50); %Basophils 2.2 % (0.0-1.0); %Eosinophils 1.7 % (0.0-10.0); %Monocytes 7.1 % (0.0-10.0); Hemoglobin 13.9 g/dL (14.0-18.0); Mean Corpuscular HGB CONC 31.8 g/dL (32.0-36.0); Mean Corpuscular Volume 91.2 fL (78.0-98.0); Mean Platelet Volume 11.4 fL (7.4-10.4); Platelet Count 183 thou/uL (130-400); RBC Distribution Width 13.2 % (11.5-14.5); White Blood Cell (WBC) Count 4.3 thou/uL (4.8-10.8)
[2018-07-18 12:44] LABS: ALT (SGPT) 34 U/L (8-55); AST (SGOT) 26 U/L (5-34); Albumin 4.1 g/dL (3.5-5.0); Alkaline Phosphatase 113 U/L (40-150); Anion Gap 11 mmol/L (10-20); BUN (Urea Nitrogen) 10 mg/dL (8.9-20.6); Bilirubin, Total 0.8 mg/dL (0.2-1.2); CK (CPK) 99 U/L (30-200); Calc. Creatinine Clearance 0 mL/min (70-130); Calcium 9.6 mg/dL (7.8-10.44); Carbon Dioxide 28 mmol/L (22-29); Chloride 104 mmol/L (98-107); Estimated GFR-MDRD Greater than 90; Globulin 3.5 g/dL (2.4-3.5); Glucose 84 mg/dL (70-105); Iron 65 ug/dL (65-175); Lipase 7 U/L (8-78); Potassium 3.8 mmol/L (3.5-5.1); Protein, Total 7.6 g/dL (6.0-8.3); Sodium 139 mmol/L (136-145)
[2018-07-18] MEDS ORDERED: Morphine 4 MG/ML VIAL ONE ×2 (12:58→13:58)
[2018-07-18] MEDS ORDERED: Ondansetron PF 4 MG/2 ML Vial ONE (12:58)
[2018-07-18 13:49] LABS: Bilirubin Negative (Negative); Blood, Urine Negative (Negative); Clarity CLEAR (Clear); Glucose, Urine (Dipstick) Negative (Negative); Leukocyte Negative (Negative); Nitrite Negative (Negative); Protein, Urine (Dipstick) Negative (Neg-Trace); Specific Gravity, Urine 1.018 (1.002-1.036)
--- NOTE | 2018-07-18 14:16 | CT ---
CT Abdomen Pelvis W Con: 07/18/2018 11:48 AM CLINICAL INFORMATION: Abdominal pain COMPARISON: 07/01/2018 Procedure: Multiple contiguous axial images were obtained and a CT of the abdomen and pelvis with IV contrast. C oronal reformats were performed. FINDINGS: Lower Chest: Chronic changes Vessels: Normal caliber aorta. No periaortic fat stranding. Abdomen: Portal vein:Patent Gallbladder: No calcified gallstones. Normal caliber wall. Liver: within normal limits. Pancreas: within normal limits. Spleen: within normal limits. Adrenals: within normal limits. Kidneys: Symmetric enhancement. No obstructive uropathy. Nonobstructing punctate 1 mm calculus in the upper pole left kidney. Stable complex cyst in the upper pole the right kidney measuring 2.7 x 2.5 cm. Bilaterally no obstructive uropathy. Peritoneum: No ascites or free air, no fluid collection. Bowel: Limited evaluation. There is evidence of previous bariatric surgery. Multiple normal caliber s mall bowel loops. Ileocecal junction is normal. Normal caliber appendix. Decompressed colon. Occasional diverticulosis. No diverticulitis. Mesentery and Retroperitoneum: No enlarged mesenteric or retroperitoneal lymph nodes. Abdominal Wall: within normal limits. Pelvis: Pelvis within normal limits. Bladder: within normal limits. Bones: within normal limits. IMPRESSION: No evidence of acute intraabdominal\pelvic abnormality.
== END 2018-07-18 15:45 | disposition home or self-care (01) ==
LOC: ERS 11:14
DX: R10.13 Epigastric pain (principal); I10 Essential (primary) hypertension; F41.9 Anxiety disorder, unspecified
CPT/HCPCS: 36415; 74177; 80053; 81003; 82550; 82607; 83540; 83605; 83690; 84425; 85025; 94760; 96361; 96374; 96375; 96376; J2270; J2405; Q9966; Q9967

== ENCOUNTER 2018-08-14 13:54 | Emergency (ER) | payer BC ==
[~2018-08-14 13:54] MED LIST changes: -ISOVUE-370 76%-LOCM 1 ML ONE; +Iopamidol 370 76% 100 ML VIAL ONE; -Iopamidol 370 76% 50 ML VIAL FS ONE
[2018-08-14] MEDS ORDERED: Ondansetron PF 4 MG/2 ML Vial ONE (14:22)
[2018-08-14 14:27] LABS: Hemoglobin 14.7 g/dL (14.0-18.0); Mean Corpuscular HGB CONC 34.1 g/dL (32.0-36.0); Mean Corpuscular Hemoglobin 29.8 pg (27.0-31.0); Mean Corpuscular Volume 87.6 fL (78.0-98.0); Mean Platelet Volume 12.9 fL (7.4-10.4); Platelet Count 189 thou/uL (130-400); Red Blood Cell (RBC) Count 4.92 mill/uL (4.70-6.10); White Blood Cell (WBC) Count 6.3 thou/uL (4.8-10.8)
[2018-08-14 14:36] LABS: ALT (SGPT) 31 U/L (8-55); AST (SGOT) 20 U/L (5-34); Albumin 4.1 g/dL (3.5-5.0); Alkaline Phosphatase 110 U/L (40-150); Anion Gap 12 mmol/L (10-20); BUN (Urea Nitrogen) 13 mg/dL (8.9-20.6); Bilirubin, Total 0.5 mg/dL (0.2-1.2); Calc. Creatinine Clearance 0 mL/min (70-130); Calcium 9.3 mg/dL (7.8-10.44); Carbon Dioxide 25 mmol/L (22-29); Chloride 105 mmol/L (98-107); Estimated GFR-MDRD Greater than 90; Globulin 3.2 g/dL (2.4-3.5); Glucose 99 mg/dL (70-105); Lipase 30 U/L (8-78); Potassium 4.2 mmol/L (3.5-5.1); Protein, Total 7.3 g/dL (6.0-8.3); Sodium 138 mmol/L (136-145)
[2018-08-14 14:38] LABS: #Basophils 0.1 thou/uL (0.0-0.2); #Eosinphils 0.1 thou/uL (0.0-0.7); #Lymphocytes 1.6 thou/uL (1.20-3.40); #Monocytes 0.5 thou/uL (0.11-0.59); %Lymphocytes 25.6 % (21.0-51.0); %Neutrophils 63.5 % (42.0-75.0); Large Platelets SLIGHT; MDiff Complete? YES; Platelet Morphology Comment Appears Adequate; Stomatocytes SLIGHT = 2-5 cells (100X) (0-1/hpf)
--- NOTE | 2018-08-14 15:04 | CT ---
CT abdomen and pelvis with IV contrast HISTORY: Abdominal pain. COMPARISON: 07/18/2018. FINDINGS: Lung bases are clear. Postoperative changes of the stomach. Right renal cyst is stable. The small calcification of the superior pole left kidney is unchanged in appearance. No evidence of b owel obstruction. Urinary bladder is unremarkable. Subtle stranding within the deep subcutaneous fat of the left anterior mid abdomen is stable. IMPRESSION: Chronic-type findings are stable. No acute abnormalities are demonstrated.
== END 2018-08-14 15:33 | disposition home or self-care (01) ==
LOC: SCSER 13:54 → EEVIPCON 13:54 → SCSER 15:33
DX: R10.13 Epigastric pain (principal); R11.2 Nausea with vomiting, unspecified; F41.9 Anxiety disorder, unspecified; M10.9 Gout, unspecified; E66.9 Obesity, unspecified
CPT/HCPCS: 74177; 80053; 83690; 83735; 85025; 96361; 96372; 96374; J0500; J2405; Q9967

== ENCOUNTER 2018-10-26 12:37 | Emergency (ER) | payer BC | END 2018-10-26 13:10 | disposition home or self-care (01) | LOC: ERS 12:37 | DX: M10.9 Gout, unspecified (principal); I10 Essential (primary) hypertension; E66.9 Obesity, unspecified; F41.9 Anxiety disorder, unspecified; Z79.899 Other long term (current) drug therapy | CPT/HCPCS: 99283 ==

== ENCOUNTER 2018-11-05 07:32 | Observation (INO) | payer BC ==
[2018-11-05 08:15] LABS: Eosinophils 2 % (0-10); Hemoglobin 15.7 g/dL (14.0-18.0); Lymphocytes 26 % (21-51); MDiff Complete? YES; Mean Corpuscular Hemoglobin 29.4 pg (27.0-31.0); Mean Corpuscular Volume 88.9 fL (78.0-98.0); Mean Platelet Volume 11.5 fL (7.4-10.4); Monocytes 6 % (0-10); Neutrophil 57 % (42-75); Platelet Count 235 thou/uL (130-400); Platelet Morphology Comment Appears Adequate; RBC Distribution Width 13.7 % (11.5-14.5); Reactive Lymphocytes 9 % (0-10); Red Blood Cell (RBC) Count 5.33 mill/uL (4.70-6.10); White Blood Cell (WBC) Count 5.1 thou/uL (4.8-10.8)
--- NOTE | 2018-11-05 08:15 | RAD ---
EXAM: CHEST ONE VIEW HISTORY: Chest pain. History of prior gastric bypass surgery. COMPARISON: 03/16/2018 FINDINGS: The cardiac silhouette and pulmonary vasculature is within normal limits. The lungs are clear. The os seous structures are intact. There is persistent mild elevation of the right hemidiaphragm. IMPRESSION: No acute cardiopulmonary process.
[2018-11-05 08:18] LABS: ALT (SGPT) 48 U/L (8-55); AST (SGOT) 32 U/L (5-34); Albumin 4.2 g/dL (3.5-5.0); Alkaline Phosphatase 138 U/L (40-150); Anion Gap 16 mmol/L (10-20); BUN (Urea Nitrogen) 13 mg/dL (8.9-20.6); Bilirubin, Total 0.7 mg/dL (0.2-1.2); CK (CPK) 118 U/L (30-200); Calc. Creatinine Clearance 0 mL/min (70-130); Calcium 9.5 mg/dL (7.8-10.44); Carbon Dioxide 25 mmol/L (22-29); Chloride 104 mmol/L (98-107); Estimated GFR-MDRD Greater than 90; Glucose 103 mg/dL (70-105); Potassium 3.8 mmol/L (3.5-5.1); Protein, Total 8.2 g/dL (6.0-8.3); Sodium 141 mmol/L (136-145)
[2018-11-05] MEDS ORDERED: Aspirin Chewable 81 MG TAB ONE (09:03)
--- NOTE | 2018-11-05 10:00 | CT ---
CTA CHEST WITH IV CONTRAST AND 3D POST PROCESSING: HISTORY: Chest pain. Dizziness. FINDINGS: There is good opacification of the thoracic aorta without aneurysm or intimal flap to suggest dissect ion. There is suboptimal opacification of the pulmonary arterial vasculature for satisfactory evalua tion for pulmonary embolism. No pleural or pericardial effusions are seen. No pneumothoraces, focal areas of consolidation, lung nodules, or masses are identified. There are degenerative changes in t he spine. IMPRESSION: 1. No CT evidence of thoracic aortic aneurysm or dissection. 2. Nondiagnostic examination for pulmonary embolism. POS: [facility]
[2018-11-05 12:16] LABS: Cocaine Metabolite Screen Not Detected (NotDetected); Methamphetamine Not Detected (NotDetected); Opiate Screen Not Detected (NotDetected); Phencyclidine (PCP) Not Detected (NotDetected); THC/Cannabinoid Screen Not Detected (NotDetected)
[2018-11-05 12:17] LABS: Amphetamine Not Detected (NotDetected); Barbiturates Screen Detected (NotDetected); Benzodiazepine Screen Not Detected (NotDetected); Medtox Control Line Valid? VALID (VALID); Methadone Not Detected (NotDetected); Oxycodone Screen Not Detected (NotDetected); Tricyclic Screen Not Detected (NotDetected)
[2018-11-05 15:57] VITALS: BMI 39.2
[2018-11-05] MEDS ORDERED: Iopamidol 370 76% 100 ML VIAL ONE (16:23)
[2018-11-05] MEDS ORDERED: Nitroglycerin 0.4 MG TAB (25 Tab Bottle) PO PRN (16:23)
[2018-11-05] MEDS ORDERED: Colchicine 0.6 MG TAB PO PRN (16:26)
[2018-11-05] MEDS ORDERED: Ondansetron ODT 4 MG TAB PO PRN (16:26)
[2018-11-05] MEDS ORDERED: traZODone HCl 50 MG TAB PO PRN (16:26)
[2018-11-05] MEDS ORDERED: Ondansetron PF 4 MG/2 ML Vial IVP PRN (16:26)
[2018-11-05] MEDS ORDERED: clonazePAM 1 MG TAB PO PRN (16:26)
[2018-11-05] MEDS ORDERED: hydrALAZINE 20 MG/ML VIAL SLOW IVP PRN (16:26)
[2018-11-05] MEDS ORDERED: Acetaminophen 500 MG TAB PO PRN (16:26)
[2018-11-05] MEDS ORDERED: Nystatin Powder 15 GM BOT TOP PRN (16:35)
[2018-11-05 16:39] LABS: Troponin I 0.026 ng/mL (< 0.028)
[2018-11-05] MEDS: HYDROcodone/Acetaminophen 5/325 mg Tablet PO PRN ×2 (17:27→22:34)
--- NOTE | 2018-11-05 18:45 | HP ---
CHIEF COMPLAINT: Chest pain. HISTORY OF PRESENT ILLNESS: Mr. Wright is a 37-year-old male with past medical history significant for morbid obesity status post Jem-en-Y gastric bypass with known history of anastomotic stricture at the J-G anastomosis status post dilation with Dr. Carmona back in April, hypertension and anxiety, who presented to the hospital with complaints of chest pain that began last night. The patient states that the chest pain woke him up out of sleep. He describes the chest discomfort as a pressure. He had associated nausea, dizziness along with some diaphoresis. He reports a subjective temperature of 100.1 at home. He did have nausea as mentioned, but no emesis. His chest pain was constant, did not wax or wane. Because of the severity of his symptoms, he did present to the [facility] for further workup and treatment. He was transferred to our facility for risk stratification and ACS rule out. Workup on arrival included a chest x-ray, which showed no acute cardiopulmonary process. He had a CTA of the chest and thorax, which showed no CT evidence of thoracic aortic aneurysm or dissection, and was nondiagnostic for pulmonary embolism. His EKG showed normal sinus rhythm. No ischemic or dynamic ST or T-wave changes. His serial cardiac enzymes have been negative x2 at the time of my dictation. The patient reports that he had a stress test in the remote past; but had no recent cardiac workup. REVIEW OF SYSTEMS: A 12-point review of systems performed ; other than that stated above, he complains of some scrotal irritation and itching. Otherwise negative. PAST MEDICAL HISTORY: Hypertension, gout, morbid obesity. PAST SURGICAL HISTORY: History of Jem-en-Y gastric bypass surgery with history of anastomotic stricture at the gastrojejunal anastomosis, which was dilated in April [address] Carmona. PSYCHIATRIC HISTORY: Positive for anxiety. SOCIAL HISTORY: The patient stated that he used to be an everyday drinker of alcoholic beverages, however, because of his history of gastric bypass along with gastritis and GERD, he has quit drinking. He has no smoking history. He uses marijuana occasionally. The patient states that he has some social stresses over the past year, along with some custody battles, but this is getting better for the patient, and his anxiety has been well controlled on his oral medications. FAMILY HISTORY: Grandmother with CAD status post CABG, father of [place]. ALLERGIES: NO KNOWN DRUG ALLERGIES. HOME MEDICATIONS: 1. Metoprolol succinate 100 mg one tablet orally daily. 2. Lisinopril 40 mg once daily. 3. Allopurinol 300 mg once daily. 4. Colchicine 600 mg orally b.i.d. 5. Pantoprazole 40 mg tablet once daily. 6. Zofran ODT 4 mg one q.8h p.r.n. nausea. 7. Trazodone 50 mg once daily. 8. Klonopin 1 mg orally once a day p.r.n. 9. Wellbutrin 150 mg extended release tablet once daily. 10. Sertraline 100 mg tablet once daily. 11. Vitamin D3 of 50,000 units orally once weekly. PHYSICAL EXAMINATION: VITAL SIGNS: Temperature 99.2, blood pressure 122/70, pulse 70, respirations 18. GENERAL: The patient is a moderately obese male, resting comfortably in bed, in no acute distress. HEENT: Head is atraumatic. Normocephalic. Mucous membranes are moist. NECK: Trachea is midline. No JVD. CV: S1 and S2. Regular rate and rhythm. No appreciable murmurs, rubs, or gallops. LUNGS: Regular respiratory rate and pattern, overall clear to auscultation bilaterally. ABDOMEN: Positive bowel sounds. Soft, nontender. EXTREMITIES: No edema. NEUROLOGIC: Cranial nerves 2 through 12 are grossly intact. The patient is nonfocal. SKIN: Warm and dry. Multiple tattoos evidenced on both upper and lower extremities. LABORATORY DATA: White blood cell count 5.1, hemoglobin 15.7, hematocrit 47.4, platelet count is 235. Sodium 141, potassium 3.8, chloride 104, BUN is 13, creatinine is 1. AST 32, ALT 48, alkaline phosphatase is 138. Troponin negative x2. ASSESSMENT: 1. Chest pain, typical and atypical features in a patient with multiple risk factors, ACS has been ruled out. 2. History of Jem-en-Y gastric bypass with history of stricture at the gastrojejunal anastomosis status post dilation April 2018, the patient has had no dysphagia since that time. 3. History of gastroesophageal reflux disease/gastritis. 4. Anxiety and depression. 5. Gout. PLAN: At this point, we will admit the patient for further risk stratification and perform a nuclear stress test in the morning given risk factors. Certainly his symptoms could be GI in nature as well, with possible esophageal spasm versus reflux or a viral gastroenteritis given the patient's complaint of subjective fever at home is in the differential as well. We will continue supportive care and pain control with p.r.n. nitrates. Antiemetics p.r.n. as well. We will obtain a fasting lipid profile as well as an A1c in the morning. Job ID: [id number] MTDD
[2018-11-05] MEDS: Morphine 2 MG/ML SYRINGE SLOW IVP PRN (20:33)
[2018-11-05] MEDS ORDERED: Lisinopril 20 MG TAB PO SCH (21:00)
[2018-11-06] MEDS ORDERED: Metoclopramide HCl 10 MG/2 ML VIAL IVP SCH (00:30)
[2018-11-06] MEDS: Morphine 2 MG/ML SYRINGE SLOW IVP PRN ×4 (00:43→15:07)
[2018-11-06 05:21] LABS: Hemoglobin A1c 5.3 % (4.0-6.0)
[2018-11-06 05:37] LABS: Cardiac Risk 2.6 (Less than 4.5)
[2018-11-06] MEDS: HYDROcodone/Acetaminophen 5/325 mg Tablet PO PRN (07:50)
[2018-11-06] MEDS ORDERED: Allopurinol 300 MG TAB PO SCH (09:00)
[2018-11-06] MEDS ORDERED: Aspirin 81 mg Enteric Coated Tablet PO SCH (09:00)
[2018-11-06] MEDS ORDERED: Bupropion 150 MG SR TAB PO SCH (09:00)
[2018-11-06 09:33] LABS: ALT (SGPT) 35 U/L (8-55); AST (SGOT) 23 U/L (5-34); Albumin 3.9 g/dL (3.5-5.0); Alkaline Phosphatase 122 U/L (40-150); Anion Gap 15 mmol/L (10-20); BUN (Urea Nitrogen) 15 mg/dL (8.9-20.6); Bilirubin, Total 0.7 mg/dL (0.2-1.2); Calc. Creatinine Clearance 198 mL/min (70-130); Calcium 9.4 mg/dL (7.8-10.44); Carbon Dioxide 28 mmol/L (22-29); Chloride 99 mmol/L (98-107); Estimated GFR-MDRD Greater than 90; Globulin 3.5 g/dL (2.4-3.5); Glucose 104 mg/dL (70-105); Potassium 3.7 mmol/L (3.5-5.1); Protein, Total 7.4 g/dL (6.0-8.3); Sodium 138 mmol/L (136-145)
[2018-11-06 09:37] LABS: #Basophils 0.1 thou/uL (0.0-0.2); #Eosinphils 0.1 thou/uL (0.0-0.7); #Lymphocytes 2.5 thou/uL (1.20-3.40); #Monocytes 0.6 thou/uL (0.11-0.59); #Neutrophils 3.3 thou/uL (1.40-6.50); %Basophils 1.7 % (0.0-1.0); %Eosinophils 1.2 % (0.0-10.0); %Lymphocytes 38.2 % (21.0-51.0); %Monocytes 9.6 % (0.0-10.0); %Neutrophils 49.4 % (42.0-75.0); Mean Corpuscular HGB CONC 33.7 g/dL (32.0-36.0); Mean Corpuscular Hemoglobin 30.3 pg (27.0-31.0); Mean Corpuscular Volume 89.8 fL (78.0-98.0); Platelet Count 185 thou/uL (130-400); RBC Distribution Width 13.3 % (11.5-14.5); Red Blood Cell (RBC) Count 4.95 mill/uL (4.70-6.10); White Blood Cell (WBC) Count 6.6 thou/uL (4.8-10.8)
[2018-11-06] MEDS ORDERED: Sodium Chloride 0.9% 500 ML IV SCH (13:15)
[2018-11-06] MEDS ORDERED: Regadenoson 0.4 MG/5 ML SYRINGE ONE (13:48)
--- NOTE | 2018-11-06 14:36 | NM ---
EXAM: NM Cardiac Stress W EF WF PROVIDED CLINICAL HISTORY: Chest pain COMPARISON: None RADIOPHARMACEUTICAL: 33 millicuries technetium 99m labeled sestamibi IV stress FINDINGS: There is normal, homogeneous distribution of radiotracer throughout the left ventricular myocardium. Gated data demonstrate normal myocardial wall motion and thickening with calculated LVEF 58%. IMPRESSION: 1. No scintigraphic evidence for ischemia. 2. Calculated LVEF 58%.
[2018-11-06 15:50] VITALS: BP 140/87; TEMP 97.6
[2018-11-12] MEDS ORDERED: CHOLECALCIFEROL 50000 UNIT PO SCH (09:00)
== END 2018-11-06 18:40 | disposition home or self-care (01) ==
LOC: SCSER 07:32 → EEVIPCON 07:32 → ERHOLD 09:20 → 2SW 14:53
PROVIDERS: ADMIT Internal Medicine; ATTEND Internal Medicine
DX: R07.89 Other chest pain (principal); I10 Essential (primary) hypertension; F41.9 Anxiety disorder, unspecified; F32.9 Major depressive disorder, single episode, unspecified; E66.01 Morbid (severe) obesity due to excess calories; K21.9 Gastro-esophageal reflux disease without esophagitis; M10.9 Gout, unspecified; Z68.39 Body mass index [BMI] 39.0-39.9, adult; Z98.84 Bariatric surgery status; Z79.899 Other long term (current) drug therapy
CPT/HCPCS: 36415; 71045; 71275; 78452; 80053; 80061; 80306; 82550; 83036; 84484; 85025; 93005; 93017; 96374; 96375; 96376; A9500; G0378; J2270; J2765; J2785; Q9967

== ENCOUNTER 2019-03-05 14:39 | Emergency (ER) | payer BC ==
[~2019-03-05 14:39] MED LIST changes: -Iopamidol 370 76% 100 ML VIAL ONE; +Iopamidol 370 76% 50 ML VIAL FS ONE; +Iopamidol-370 76% 500 ML 1 ML ONE
[2019-03-05] MEDS ORDERED: Ondansetron PF 4 MG/2 ML Vial ONE ×2 (15:17→18:05)
[2019-03-05] MEDS ORDERED: Morphine 4 MG/ML VIAL ONE ×3 (15:17→18:46)
[2019-03-05 15:21] LABS: #Basophils 0.1 thou/uL (0.0-0.2); #Lymphocytes 1.4 thou/uL (1.20-3.40); #Monocytes 0.4 thou/uL (0.11-0.59); #Neutrophils 4.1 thou/uL (1.40-6.50); %Basophils 1.2 % (0.0-1.0); %Eosinophils 0.1 % (0.0-10.0); %Lymphocytes 23.2 % (21.0-51.0); %Neutrophils 68.5 % (42.0-75.0); Mean Corpuscular HGB CONC 34.2 g/dL (32.0-36.0); Mean Corpuscular Hemoglobin 32.1 pg (27.0-31.0); Mean Corpuscular Volume 93.7 fL (78.0-98.0); Mean Platelet Volume 9.9 fL (7.4-10.4); Platelet Count 184 thou/uL (130-400); White Blood Cell (WBC) Count 5.9 thou/uL (4.8-10.8)
[2019-03-05 15:41] LABS: ALT (SGPT) 147 U/L (8-55); AST (SGOT) 162 U/L (5-34); Albumin 4.8 g/dL (3.5-5.0); Alkaline Phosphatase 154 U/L (40-110); Anion Gap 19 mmol/L (10-20); BUN (Urea Nitrogen) 12 mg/dL (8.9-20.6); Calc. Creatinine Clearance 0 mL/min (70-130); Carbon Dioxide 23 mmol/L (22-29); Chloride 98 mmol/L (98-107); Estimated GFR-MDRD Greater than 90; Globulin 4.2 g/dL (2.4-3.5); Glucose 115 mg/dL (70-105); Lipase 11 U/L (8-78); Potassium 4.9 mmol/L (3.5-5.1); Sodium 135 mmol/L (136-145)
--- NOTE | 2019-03-05 18:29 | CT ---
CT abdomen and pelvis: 03/05/2019 COMPARISON: 08/14/2018 HISTORY: Nausea and vomiting TECHNIQUE: Axial CT imaging at 5 mm intervals from lung bases through pubic symphysis with intravenou s and oral contrast. Coronal and sagittal reformatted imaging obtained. FINDINGS: The visualized lung bases are unremarkable. No free intraperitoneal air or fluid. Hepatic parenchyma is markedly hypodense, evidence of steatosis. Limited assessment of the gallbladde r is grossly unremarkable. Gallbladder not well assessed via CT. Spleen, pancreas, and adrenal glands unremarkable. Gastric suture line noted. There is a punctate nonobstructing stone in the upper pole of the left kidney. There is a stable cyst in the upper pole of the right kidney. No evidence for bowel inflammatory change or bowel obstruction. The appendix is unremarkable. The vascular struct ures of the abdomen/pelvis appear unremarkable. No abdominal or pelvic lymphadenopathy. No acute osseous abnormality. IMPRESSION: Numerous chronic findings as detailed above. No acute findings are noted.
--- NOTE | 2019-03-05 19:51 | ULT ---
Right upper quadrant ultrasound: 03/05/2019 COMPARISON: None HISTORY: Right upper quadrant pain, abnormal liver function test TECHNIQUE: Multiplanar grayscale sonographic imaging of the right upper quadrant provided. FINDINGS: The hepatic parenchyma is echogenic and heterogeneous, suggesting steatosis. The pancreas i s obscured by bowel gas. The copy clerk reports a negative Gong's sign. No gallbladder wall thickening. No gallstones noted . Right kidney measures 12 cm in craniocaudal dimension and demonstrates no stone, hydronephrosis, or mass. There is a cyst within the right kidney measuring 2.8 x 2.7 x 3.2 cm. The portal vein and th e common bile duct could not be visualized secondary to body habitus and increased echogenicity of the hepatic parenchyma. IMPRESSION: No evidence for cholecystitis or cholelithiasis. Hepatic steatosis.
[2019-03-05 20:13] LABS: Bilirubin Negative (Negative); Blood, Urine Negative (Negative); Clarity Clear (Clear); Glucose, Urine (Dipstick) Normal (Negative); Leukocyte 75 Leu/uL (Negative); Nitrite Negative (Negative); Protein, Urine (Dipstick) 30 mg/dL (Neg-Trace); Squamous Epithelial 0-3 HPF (0-3); Urobilinogen Normal mg/dL (Less than 2)
[2019-03-05 20:14] LABS: Bacteria/HPF 1+ HPF (None Seen)
[2019-03-05] MEDS ORDERED: Metoclopramide HCl 10 MG/2 ML VIAL ONE (20:51)
== END 2019-03-05 22:19 | disposition home or self-care (01) ==
LOC: ERS 14:39 → EEVIPCON 14:39 → ERS 22:19
DX: R11.2 Nausea with vomiting, unspecified (principal); I10 Essential (primary) hypertension; E66.9 Obesity, unspecified; F41.9 Anxiety disorder, unspecified; Z87.891 Personal history of nicotine dependence; Z79.899 Other long term (current) drug therapy
CPT/HCPCS: 74177; 76705; 80053; 81003; 81015; 83690; 84484; 85025; 94760; 96361; 96365; 96375; 96376; J2270; J2405; J2765; Q9967

== ENCOUNTER 2019-12-30 19:17 | Emergency (ER) | payer BC ==
[~2019-12-30 19:17] MED LIST changes: -Iopamidol 370 76% 50 ML VIAL FS ONE
[2019-12-30 19:40] LABS: #Basophils 0.1 thou/uL (0.0-0.2); #Lymphocytes 1.9 thou/uL (1.20-3.40); #Monocytes 0.4 thou/uL (0.11-0.59); %Basophils 2.8 % (0.0-1.0); %Eosinophils 0.7 % (0.0-10.0); %Lymphocytes 43.3 % (21.0-51.0); %Neutrophils 45.2 % (42.0-75.0); Hemoglobin 15.2 g/dL (14.0-18.0); Mean Corpuscular HGB CONC 34.2 g/dL (32.0-36.0); Mean Corpuscular Volume 93.5 fL (78.0-98.0); Mean Platelet Volume 9.8 fL (7.4-10.4); Platelet Count 209 thou/uL (130-400); RBC Distribution Width 11.3 % (11.5-14.5); Red Blood Cell (RBC) Count 4.74 mill/uL (4.70-6.10); White Blood Cell (WBC) Count 4.3 thou/uL (4.8-10.8)
[2019-12-30 19:42] LABS: Bacteria/HPF None Seen HPF (None Seen); Bilirubin Negative (Negative); Blood, Urine Negative (Negative); Clarity Clear (Clear); Glucose, Urine (Dipstick) Normal (Negative); Ketone, Urine Negative (Negative); Leukocyte 250 Leu/uL (Negative); Mucous/LPF 1+ LPF (<2+); Nitrite Negative (Negative); Protein, Urine (Dipstick) 20 mg/dL (Neg-Trace); Specific Gravity, Urine 1.029 (1.002-1.036); Squamous Epithelial 0-3 HPF (0-3); Urobilinogen Normal mg/dL (Less than 2); pH, Urine 5.5 (5.0-9.0)
[2019-12-30 20:04] LABS: ALT (SGPT) 12 U/L (8-55); AST (SGOT) 18 U/L (5-34); Albumin 4.5 g/dL (3.5-5.0); Alkaline Phosphatase 90 U/L (40-110); Anion Gap 14 mmol/L (10-20); BUN (Urea Nitrogen) 12 mg/dL (8.9-20.6); Bilirubin, Total 0.4 mg/dL (0.2-1.2); Calc. Creatinine Clearance 0 mL/min (70-130); Calcium 9.3 mg/dL (7.8-10.44); Carbon Dioxide 27 mmol/L (22-29); Chloride 102 mmol/L (98-107); Estimated GFR-MDRD Greater than 90; Globulin 3.6 g/dL (2.4-3.5); Glucose 87 mg/dL (70-105); Potassium 3.8 mmol/L (3.5-5.1); Protein, Total 8.1 g/dL (6.0-8.3); Sodium 139 mmol/L (136-145)
[2019-12-30] MEDS ORDERED: Morphine 4 MG/ML VIAL ONE (21:44)
[2019-12-30] MEDS ORDERED: Ketorolac Tromethamine 30 MG/ML VIAL ONE (21:44)
--- NOTE | 2019-12-30 22:34 | CT ---
EXAM: CT ABDOMEN AND PELVIS HISTORY: Left lower quadrant pain. Flank pain. Dysuria. COMPARISON: 03/05/2019 Procedure: Multiple contiguous axial images were obtained and a CT of the abdomen and pelvis with IV contrast. C oronal reformats were performed. FINDINGS: Lower Chest: Scarring and atelectasis in the right lower lobe Vessels: Normal caliber aorta. Heart: Normal heart size Abdomen: Portal vein:Patent Gallbladder: No calcified gallstones. Normal caliber wall. Liver: within normal limits. Pancreas: within normal limits. Spleen: within normal limits. Adrenals: within normal limits. Kidneys: Exophytic hypodensity emanating from the upper pole of the right kidney, compatible with a r enal cyst, measuring 2.4 cm. Bilaterally no obstructive uropathy. Nonobstructing punctate calculus in the upper pole the left kidney measures 0.2 cm. Peritoneum: No ascites or free air, no fluid collection. Bowel: Limited evaluation due to lack of oral contrast administration. There is evidence of previous bariatric surgical change. No small bowel obstruction. Normal ileocecal junction. There is hyperdense material in the appendix. Nevertheless no obvious inflammatory change. Fecal material in a nondistended, nondilated colon. Occasional diverticulum. No diverticulitis. Mesentery and Retroperitoneum: No enlarged mesenteric or retroperitoneal lymph nodes. Abdominal Wall: Small umbilical hernia containing mesenteric fat Pelvis: Reproductive Organs: Reproductive organs are unremarkable. Pelvis: No mass, lymphadenopathy, free air or free fluid. Bladder: within normal limits. Bones: within normal limits. IMPRESSION: 1. No acute abnormality in the abdomen or pelvis 2. Nonobstructing calculus in the left intrarenal collecting system 3. Right renal cyst. 4. Appendicoliths without evidence of appendicitis.
[2019-12-30] MEDS ORDERED: Azithromycin 250 MG TAB ONE (23:28)
[2019-12-30] MEDS ORDERED: Lidocaine 2% 10 ML INJ ONE (23:28)
[2019-12-30] MEDS ORDERED: cefTRIAXone\\ROCEPHIN 250 MG VIAL ONE (23:28)
[2019-12-31 21:54] LABS: Chlam.trachomatis by PCR,Urine Not Detected (NotDetected)
== END 2019-12-30 23:59 | disposition home or self-care (01) ==
LOC: ERS 19:17
DX: A64 Unspecified sexually transmitted disease (principal); M54.9 Dorsalgia, unspecified; I10 Essential (primary) hypertension; M10.9 Gout, unspecified; E66.9 Obesity, unspecified; F41.9 Anxiety disorder, unspecified; Z87.891 Personal history of nicotine dependence
CPT/HCPCS: 36415; 74177; 80053; 81003; 81015; 85025; 87086; 87491; 87591; 96372; 96374; 96375; J0696; J1885; J2270; Q9967

== ENCOUNTER 2020-07-13 04:49 | Emergency (ER) | payer BC ==
[2020-07-13 05:50] LABS: Bilirubin Negative (Negative); Blood, Urine Negative (Negative); Clarity Clear (Clear); Glucose, Urine (Dipstick) Normal (Negative); Ketone, Urine Negative (Negative); Leukocyte Negative Leu/uL (Negative); Nitrite Negative (Negative); Protein, Urine (Dipstick) Negative (Neg-Trace); Specific Gravity, Urine 1.011 (1.002-1.036); Urobilinogen Normal mg/dL (Less than 2); pH, Urine 6.5 (5.0-9.0)
[2020-07-13] MEDS ORDERED: risperiDONE 1 MG TAB ONE (06:05)
[2020-07-13] MEDS ORDERED: Boostrix 0.5 ML (Tdap) VIAL ONE (06:05)
[2020-07-13 06:42] LABS: #Eosinphils 0.1 thou/uL (0.0-0.7); #Monocytes 0.4 thou/uL (0.11-0.59); #Neutrophils 2.4 thou/uL (1.40-6.50); %Basophils 0.9 % (0.0-1.0); %Eosinophils 1.4 % (0.0-10.0); %Lymphocytes 40.7 % (21.0-51.0); %Monocytes 8.8 % (0.0-10.0); %Neutrophils 48.2 % (42.0-75.0); Mean Corpuscular HGB CONC 31.9 g/dL (32.0-36.0); Mean Corpuscular Hemoglobin 30.1 pg (27.0-31.0); Mean Corpuscular Volume 94.5 fL (78.0-98.0); Platelet Count 203 thou/uL (130-400); RBC Distribution Width 11.6 % (11.5-14.5); Red Blood Cell (RBC) Count 4.66 mill/uL (4.70-6.10); White Blood Cell (WBC) Count 4.9 thou/uL (4.8-10.8)
[2020-07-13 07:01] LABS: ALT (SGPT) 18 U/L (8-55); AST (SGOT) 17 U/L (5-34); Albumin 3.9 g/dL (3.5-5.0); Alkaline Phosphatase 87 U/L (40-110); Anion Gap 13 mmol/L (10-20); BUN (Urea Nitrogen) 13 mg/dL (8.9-20.6); Bilirubin, Total 0.4 mg/dL (0.2-1.2); Calc. Creatinine Clearance 0 mL/min (70-130); Calcium 8.8 mg/dL (7.8-10.44); Carbon Dioxide 28 mmol/L (22-29); Chloride 103 mmol/L (98-107); Globulin 3.2 g/dL (2.4-3.5); Glucose 96 mg/dL (70-105); Potassium 3.5 mmol/L (3.5-5.1); Protein, Total 7.1 g/dL (6.0-8.3); Sodium 140 mmol/L (136-145)
[2020-07-13 07:02] LABS: Acetaminophen Less than 6.0 mcg/mL (10.0-30.0); Alcohol Less than 10 mg/dL (Less than 10); Salicylate Less than 8.0 mg/dL (15.0-30.0)
[2020-07-13 07:05] LABS: Amphetamine Not Detected (NotDetected); Barbiturates Screen Not Detected (NotDetected); Benzodiazepine Screen Not Detected (NotDetected); Cocaine Metabolite Screen Not Detected (NotDetected); Medtox Control Line Valid? VALID (VALID); Medtox Reader # READER 4; Methadone Not Detected (NotDetected); Methamphetamine Not Detected (NotDetected); Opiate Screen Not Detected (NotDetected); Oxycodone Screen Not Detected (NotDetected); Phencyclidine (PCP) Not Detected (NotDetected); THC/Cannabinoid Screen Not Detected (NotDetected); Tricyclic Screen Not Detected (NotDetected)
[2020-07-13] MEDS ORDERED: Citalopram 20 MG TAB PO SCH (09:00)
[2020-07-13] MEDS ORDERED: Allopurinol 300 MG TAB PO SCH (09:00)
[2020-07-13] MEDS ORDERED: Aripiprazole 10 MG TAB PO SCH (09:00)
[2020-07-13] MEDS ORDERED: Acetaminophen 325 MG TAB ONE (12:44)
[2020-07-13] MEDS ORDERED: Ibuprofen 200 MG TAB ONE (13:57)
== END 2020-07-13 14:59 ==
LOC: ERS 04:49
DX: R45.851 Suicidal ideations (principal); I10 Essential (primary) hypertension; M10.9 Gout, unspecified; E66.9 Obesity, unspecified; K21.9 Gastro-esophageal reflux disease without esophagitis; Z87.891 Personal history of nicotine dependence
CPT/HCPCS: 36415; 80053; 80306; 80307; 81003; 85025; 90471; 90715

== ENCOUNTER 2020-07-19 13:45 | Observation (INO) | payer BC ==
[2020-07-19] MEDS ORDERED: Aspirin Chewable 81 MG TAB ONE (13:58)
[2020-07-19] MEDS ORDERED: Nitroglycerin 0.4 MG TAB 1 EACH ONE (14:01)
[2020-07-19 14:16] LABS: #Lymphocytes 1.6 thou/uL (1.20-3.40); #Monocytes 0.5 thou/uL (0.11-0.59); #Neutrophils 1.8 thou/uL (1.40-6.50); %Basophils 1.1 % (0.0-1.0); %Eosinophils 0.6 % (0.0-10.0); %Lymphocytes 41.3 % (21.0-51.0); %Monocytes 11.6 % (0.0-10.0); %Neutrophils 45.5 % (42.0-75.0); Hemoglobin 14.6 g/dL (14.0-18.0); Mean Corpuscular HGB CONC 34.3 g/dL (32.0-36.0); Mean Corpuscular Hemoglobin 32.4 pg (27.0-31.0); Mean Corpuscular Volume 94.6 fL (78.0-98.0); Mean Platelet Volume 10.1 fL (7.4-10.4); Platelet Count 179 thou/uL (130-400); RBC Distribution Width 11.3 % (11.5-14.5); Red Blood Cell (RBC) Count 4.51 mill/uL (4.70-6.10); White Blood Cell (WBC) Count 3.9 thou/uL (4.8-10.8)
[2020-07-19] MEDS ORDERED: Acetaminophen 500 MG TAB ONE (14:21)
[2020-07-19 14:39] LABS: ALT (SGPT) 20 U/L (8-55); AST (SGOT) 19 U/L (5-34); Albumin 4.4 g/dL (3.5-5.0); Alkaline Phosphatase 81 U/L (40-110); Anion Gap 14 mmol/L (10-20); BUN (Urea Nitrogen) 8 mg/dL (8.9-20.6); Bilirubin, Total 0.5 mg/dL (0.2-1.2); Calc. Creatinine Clearance 0 mL/min (70-130); Calcium 9.7 mg/dL (7.8-10.44); Carbon Dioxide 27 mmol/L (22-29); Chloride 103 mmol/L (98-107); Globulin 3.7 g/dL (2.4-3.5); Glucose 93 mg/dL (70-105); Potassium 3.4 mmol/L (3.5-5.1); Protein, Total 8.1 g/dL (6.0-8.3); Sodium 141 mmol/L (136-145)
[2020-07-19] MEDS ORDERED: hydrALAZINE 20 MG/ML VIAL SLOW IVP PRN ×2 (18:15→18:16)
[2020-07-19] MEDS ORDERED: Ondansetron PF 4 MG/2 ML Vial IVP PRN (18:15)
[2020-07-19] MEDS ORDERED: Ketorolac Tromethamine 30 MG/ML VIAL IVP SCH (18:15)
[2020-07-19] MEDS ORDERED: Acetaminophen 500 MG TAB PO PRN (18:15)
[2020-07-19] MEDS ORDERED: traZODone HCl 50 MG TAB PO PRN (18:15)
[2020-07-19] MEDS ORDERED: Ondansetron ODT 4 MG TAB PO PRN (18:15)
[2020-07-19] MEDS ORDERED: clonazePAM 1 MG TAB PO PRN (18:15)
[2020-07-19] MEDS ORDERED: Lorazepam 1 MG TAB PO PRN (18:18)
[2020-07-19 18:27] VITALS: BMI 37.0
[2020-07-19] MEDS ORDERED: Potassium Chloride 20 MEQ TAB PO SCH (18:30)
[2020-07-19] MEDS ORDERED: hydrOXYzine 25 MG TAB PO PRN (18:31)
[2020-07-19] MEDS: OXcarbazepine 150 MG TAB PO SCH (20:28)
[2020-07-19] MEDS: busPIRone HCl 5 MG TAB PO SCH (20:28)
[2020-07-19] MEDS: Metoprolol Tartrate 50 MG TAB PO SCH (20:29)
[2020-07-19] MEDS: SUMAtriptan Succinate 50 MG TAB PO PRN (20:29)
[2020-07-19] MEDS ORDERED: Famotidine 20 MG TAB PO SCH (21:00)
[2020-07-19] MEDS ORDERED: Doxepin HCl 25 MG CAP PO SCH (21:00)
[2020-07-19] MEDS ORDERED: Lisinopril 20 MG TAB PO SCH (21:00)
[2020-07-19] MEDS ORDERED: Aripiprazole 10 MG TAB PO SCH (21:00)
[2020-07-20] MEDS: Ketorolac Tromethamine 30 MG/ML VIAL IVP SCH ×2 (00:31→06:06)
[2020-07-20] MEDS: SUMAtriptan Succinate 50 MG TAB PO PRN (03:37)
[2020-07-20 04:57] LABS: SARS-CoV-2 PCR by NAA Not Detected (NotDetected)
[2020-07-20 05:09] LABS: #Basophils 0.1 thou/uL (0.0-0.2); #Lymphocytes 1.6 thou/uL (1.20-3.40); #Monocytes 0.4 thou/uL (0.11-0.59); #Neutrophils 1.2 thou/uL (1.40-6.50); %Basophils 1.9 % (0.0-1.0); %Eosinophils 1.3 % (0.0-10.0); %Lymphocytes 49.3 % (21.0-51.0); %Monocytes 11.4 % (0.0-10.0); %Neutrophils 36.2 % (42.0-75.0); Hemoglobin 13.9 g/dL (14.0-18.0); Mean Corpuscular Hemoglobin 31.1 pg (27.0-31.0); Mean Corpuscular Volume 94.2 fL (78.0-98.0); Mean Platelet Volume 10.1 fL (7.4-10.4); Platelet Count 172 thou/uL (130-400); RBC Distribution Width 11.2 % (11.5-14.5); Red Blood Cell (RBC) Count 4.47 mill/uL (4.70-6.10); White Blood Cell (WBC) Count 3.2 thou/uL (4.8-10.8)
[2020-07-20 05:31] LABS: Anion Gap 12 mmol/L (10-20); BUN (Urea Nitrogen) 8 mg/dL (8.9-20.6); Calc. Creatinine Clearance 197 mL/min (70-130); Calcium 8.8 mg/dL (7.8-10.44); Carbon Dioxide 28 mmol/L (22-29); Chloride 104 mmol/L (98-107); Glucose 90 mg/dL (70-105); Potassium 3.8 mmol/L (3.5-5.1); Sodium 140 mmol/L (136-145)
[2020-07-20] MEDS: busPIRone HCl 5 MG TAB PO SCH (08:32)
[2020-07-20] MEDS: OXcarbazepine 150 MG TAB PO SCH (08:38)
[2020-07-20] MEDS ORDERED: Bupropion 150 MG SR TAB PO SCH (09:00)
[2020-07-20] MEDS ORDERED: lamoTRIgine 25 MG TAB PO SCH (09:00)
[2020-07-20] MEDS ORDERED: Venlafaxine HCl XR 75 MG CAP PO SCH (09:00)
[2020-07-20] MEDS ORDERED: Allopurinol 300 MG TAB PO SCH (09:00)
[2020-07-20] MEDS: Metoprolol Tartrate 50 MG TAB PO SCH (11:06)
[2020-07-20 12:23] VITALS: BP 140/98; TEMP 97.6
== END 2020-07-20 13:22 | disposition home or self-care (01) ==
LOC: ERS 13:45 → 2SW 15:36
PROVIDERS: ADMIT Family Medicine; ATTEND Hospitalist
DX: I16.0 Hypertensive urgency (principal); I10 Essential (primary) hypertension; R07.89 Other chest pain; E87.6 Hypokalemia; R51.9 Headache, unspecified; M10.9 Gout, unspecified; F12.11 Cannabis abuse, in remission; E66.9 Obesity, unspecified; Z68.37 Body mass index [BMI] 37.0-37.9, adult; Z87.891 Personal history of nicotine dependence; Z91.5 Personal history of self-harm; Z79.899 Other long term (current) drug therapy; Z98.84 Bariatric surgery status; Z20.822 Contact with and (suspected) exposure to COVID-19
CPT/HCPCS: 36415; 71045; 80048; 80053; 83880; 84484; 85025; 87635; 93005; 96374; 96376; G0378; J1885; U0003; U0005